=== PATIENT | female | born 1960 | race Caucasian/White ===

== ENCOUNTER 2017-03-21 22:33 | Inpatient (IN) | payer OTHER ==
[~2017-03-21] VITALS: Ht 152.4 cm; Wt 73.0 kg
[2017-03-21] MEDS ORDERED: INSULIN REGULAR, HUMAN 100 UNIT/ML 10 ML VIAL ONE ×2 (22:40→22:42)
[2017-03-21] MEDS ORDERED: IV SET PRIMARY 1 EA INFUS.SET MC ONE ×2 (22:40→23:38)
[2017-03-21] MEDS ORDERED: IV NS 0.9% 1,000 ML ONE ×2 (22:40→23:01)
--- NOTE | 2017-03-21 22:40 | NUR ---
PT BIB RA 60 WITH A C/O AMS, HIGH BLOOD SUGAR >600/HI IN THE FIELD. UNABLE TO START IV IN THE FIELD. PT IS NOT VERBALIZING, NOT OPENING HER EYES. PT IS DNR. PT HAS A WOUND/SCAB ON RT KNEE. PT HAS SM SCAB ON LT KNEE. MULT SCARS ON BUE AND BLE EXTREMITIES. DR. RAVI IS AT THE BEDSIDE. PT IS ON 2L O2 VIA NC.
--- NOTE | 2017-03-21 22:40 | NUR ---
PT IS TACHY ON THE MONITOR AT 175.
[2017-03-21] MEDS ORDERED: IV NS 0.9% 100 ML IV ONE (22:41)
[2017-03-21] MEDS ORDERED: IV SET PRIMARY PUMP SET 1 EA INFUS.SET MC ONE (22:41)
--- NOTE | 2017-03-21 22:44 | NUR ---
CALLED NURSING SUP. FOR ICU BED
--- NOTE | 2017-03-21 22:58 | NUR ---
18G IV STARTED 20G HAND.
[2017-03-21] MEDS: INSULIN REGULAR, HUMAN 100 UNIT in IV NS 0.9% 99 ML IV PRN ×2 (22:59)
--- NOTE | 2017-03-21 22:59 | NUR ---
INSULIN DRIP STARTED AT 10 UNITS/HR IV RIGHT HAND G20. WITNESSED BY JOANNE Rivera. GLUCOSE ON CHEMISTRY 1552 @22:49. REPEAT eMAR BG WAS ENTERED 1000 SINCE THAT WAS THE LIMIT PLACED BY THE COMPUTER.
--- NOTE | 2017-03-21 22:59 | NUR ---
INSULIN DRIP STARTED AT 10 UNITS/HR VIA 20G RT HAND
[2017-03-21] MEDS ORDERED: IV NS 0.9% 1,000 ML BAG IV ONE ×2 (23:00→23:30)
[2017-03-21] MEDS ORDERED: INSULIN REGULAR, HUMAN 100 UNIT/ML 10 ML VIAL IV ONE (23:00)
[2017-03-21 23:04] LABS: BASOPHILS % (AUTO) 0.2 % (0.0-2.0); EOSINOPHILS % (AUTO) 0.1 % (0.0-6.0); HEMATOCRIT 45 % (33-45); HEMOGLOBIN 13.2 g/dL (11.5-14.8); LYMPHOCYTES # (AUTO) 3.8 /CMM (0.8-4.8); LYMPHOCYTES % (AUTO) 18.8 % (20.0-44.0); MEAN CORPUSCULAR HEMOGLOBIN 29 PG (26.0-33.0); MEAN CORPUSCULAR HGB CONC 29 g/dl (31.0-36.0); MEAN CORPUSCULAR VOLUME 98 fL (82-100); MONOCYTES # (AUTO) 0.2 /CMM (0.1-1.30); MONOCYTES % (AUTO) 1.2 % (2.0-12.0); NEUTROPHILS # (AUTO) 16.1 /CMM (1.8-8.9); NEUTROPHILS % (AUTO) 79.7 % (43.0-81.0); PLATELET COUNT (AUTO) 234 /CMM (150-450); RDW COEFFICIENT OF VARIATION 14.1 (11.5-15.0); RED BLOOD CELL COUNT(AUTO) 4.58 MIL/uL (4.0-5.2); WHITE BLOOD COUNT (AUTO) 20.2 K/uL (4.3-11.0)
--- NOTE | 2017-03-21 23:12 | NUR ---
SALINE LOCK PLACED, NS WIDE OPEN ONGOING. INSULIN DRIP STARTED GOING AT 10 UNITS/HR, WILL DO ACCU CHEK Q30 MIN FOR NOW. AVILES CATH INSERTED. LABS DRAWN. SEEN ANS EXAMINED BY BEDSIDE DR RAVI.. KEEP MONITORING...
--- NOTE | 2017-03-21 23:20 | NUR ---
FINGERSTICK BLOOD SUGAR STILL > 600, DR RAVI AWARE. CONTINUE WITH INSULIN DRIP
[2017-03-21 23:21] LABS: CALCIUM, SERUM 7.7 mg/dL (8.5-10.1); CHLORIDE 87 mmol/L (98-107); CREATININE 4.5 mg/dL (0.6-1.3); SODIUM SERUM 127 mmol/L (136-145)
[2017-03-21 23:27] LABS: APPEARANCE,URINE SL CLOUDY (CLEAR); BILIRUBIN,URINE 1+ (NEGATIVE); BLOOD, URINE TRACE Ery/uL (NEGATIVE); COLOR,URINE YELLOW (YELLOW); KETONES,URINE 1+ (NEGATIVE); LEUKOCYTE ESTERASE ,URINE NEGATIVE (NEGATIVE); NITRITE, URINE NEGATIVE (NEGATIVE); PH,URINE 5.5 (5.0-8.0); PROTEIN,URINE 1+ mg/dl (NEGATIVE); UGLUCOSE 3+ mg/dL (NEGATIVE); UROBILINOGEN,URINE 0.2 EU/dL (0.2)
[2017-03-21 23:30] LABS: INR 0.95 (0.87-1.13); PROTHROMBIN TIME 10.1 SECS (9.5-12.7)
[2017-03-21 23:33] LABS: CARBON DIOXIDE < 5 mmol/L (21-32); GLUCOSE 1552 mg/dL (74-106); POTASSIUM 7.5 mmol/L (3.5-5.1); UREA NITROGEN, BLOOD 95 mg/dL (7-18)
[2017-03-21 23:34] LABS: TROPONIN I < 0.017 ng/mL (0.00-0.056)
[2017-03-21 23:36] LABS: ALANINE AMINOTRANSFERASE 21 U/L (12-78); ALBUMIN 2.9 g/dL (3.4-5.0); ALKALINE PHOSPHATASE 196 U/L (46-116); ASPARTATE AMINOTRANSFERASE 20 U/L (15-37); BILIRUBIN,DIRECT 0.1 mg/dL (0.0-0.2); BILIRUBIN,TOTAL 0.4 mg/dL (0.2-1.0); TOTAL PROTEIN, SERUM 8.2 g/dL (6.4-8.2)
[2017-03-21] MEDS ORDERED: CALCIUM CHLORIDE 1,000 MG/10 ML DISP.SYRIN ONE (23:36)
[2017-03-21] MEDS ORDERED: SODIUM BICARBONATE SYR 50 MEQ/50 ML DISP.SYRIN ONE (23:36)
[2017-03-21] MEDS ORDERED: IV NS 0.9% 2,000 ML ONE (23:38)
[2017-03-21 23:39] LABS: BACTERIA,URINE None seen /HPF (None Seen); RBC,URINE 0-2 /HPF (0-2); SQUAMOUS EPITHELIAL CELL,UR Rare /HPF (None Seen); WBC,URINE 0-2 /HPF (0-3); YEAST,URINE Few /HPF (None Seen)
[2017-03-21 23:40] LABS: URINE AMORPHOUS URATE Moderate /HPF (None Seen)
[2017-03-21] MEDS ORDERED: INSU100V11 SQ (23:40)
[2017-03-21] MEDS ORDERED: NA P133E RC (23:40)
[2017-03-21] MEDS ORDERED: INSU3INS6 SUBCUT (23:40)
[2017-03-21] MEDS ORDERED: ASPI81TA2 PO (23:40)
[2017-03-21] MEDS ORDERED: DOCU-25 PO (23:40)
[2017-03-21] MEDS ORDERED: BISA-79 PR (23:40)
[2017-03-21] MEDS ORDERED: CRAN200C PO (23:40)
[2017-03-21] MEDS ORDERED: PROHEAL PO (23:40)
[2017-03-21] MEDS ORDERED: MAGN400O6 PO (23:40)
[2017-03-21] MEDS ORDERED: BUPR1PAT3 TP (23:40)
[2017-03-21] MEDS ORDERED: ACET-868 PO (23:40)
[2017-03-21 23:44] LABS: BAND % (MANUAL) 3 % (0.0-5.0); LYMPHOCYTES % (MANUAL) 28 % (16-48); NEUTROPHILS % (MANUAL) 69 (42-76)
--- NOTE | 2017-03-21 23:54 | NUR ---
PT WILL BE TRANSFER TO ICU BED 258, REPORT GVIEN TO LUKAS/CRISTA.
[2017-03-22] VITALS (100 sets, daily range): BP systolic 24–142; BP diastolic 11–121
[2017-03-22] MEDS ORDERED: CALCIUM CHLORIDE 1,000 MG/10 ML DISP.SYRIN IV ONE
[2017-03-22] MEDS ORDERED: IV NS 0.9% 1,000 ML BAG IV ONE ×2
--- NOTE | 2017-03-22 00:15 | NUR ---
PT LEFT FOR CT VIA GURNEY. PT TO GO TO ICU FROM CT.
[2017-03-22] MEDS ORDERED: ENOXAPARIN SODIUM 40 MG/0.4 ML DISP.SYRIN SQ SCH (00:30)
[2017-03-22] MEDS ORDERED: CEFTRIAXONE 1 G in IV D5W 50 ML IV SCH (00:30)
[2017-03-22] MEDS ORDERED: ONDANSETRON HCL/PF 4 MG/2 ML VIAL IVP PRN (00:30)
[2017-03-22 00:37] LABS: ALANINE AMINOTRANSFERASE 13 U/L (12-78); ALBUMIN 1.8 g/dL (3.4-5.0); ALKALINE PHOSPHATASE 124 U/L (46-116); ASPARTATE AMINOTRANSFERASE 14 U/L (15-37); BILIRUBIN,TOTAL 0.3 mg/dL (0.2-1.0); CALCIUM, SERUM 7.7 mg/dL (8.5-10.1); CHLORIDE 103 mmol/L (98-107); MAGNESIUM 2.4 mg/dL (1.8-2.4); POTASSIUM 4.5 mmol/L (3.5-5.1); SODIUM SERUM 140 mmol/L (136-145); TOTAL PROTEIN, SERUM 5.2 g/dL (6.4-8.2)
[2017-03-22] MEDS ORDERED: IV SET PRIMARY PUMP SET 1 EA INFUS.SET MC ONE ×6 (00:40→23:10)
[2017-03-22] MEDS ORDERED: ENOXAPARIN SODIUM 40 MG/0.4 ML DISP.SYRIN SQ ONE (00:49)
[2017-03-22] MEDS ORDERED: IV D5W 50 ML IV ONE (00:50)
[2017-03-22] MEDS ORDERED: SECONDARY IV SET 1 EA INFUS.SET MC ONE ×3 (00:50→16:26)
[2017-03-22] MEDS ORDERED: CEFTRIAXONE 1 G VIAL ONE (00:50)
[2017-03-22 00:53] LABS: CARBON DIOXIDE < 5 mmol/L (21-32); GLUCOSE 1136 mg/dL (74-106)
[2017-03-22 00:54] LABS: PHOSPHORUS 9.3 mg/dL (2.5-4.9); UREA NITROGEN, BLOOD 89 mg/dL (7-18)
[2017-03-22] MEDS: IV NS 0.9% 1,000 ML IV PRN ×3 (01:16→03:31)
--- NOTE | 2017-03-22 01:25 | NUR ---
CARDIOVASCULAR RN DF RECEIVED PT TO ROOM#258 ABG RESULTED OF PH6.8 CO2 20 HCO3 3 PO2 72(S/W DR MANRIQUE 1 AMP HCO3 ADMIN STAT) HYPOTENSIVE 79/40,80/44 DR MACKENZIE PLAN TO RESUME 0.9 NS BOLUSES UNTIL SHOCK RESOLVED/BP STABLE. AFTER 5TH BOLUS BP OF 91.42 ADMITTED WITH HYPOTHERMIA WARMING MEASURES BEAR HUGGER PROVIDED. ADMIT TEMP OF 91.0 TEMP NOW 92.2 GLUCOSE ON LAB 1136 ORDER TO GIVE INSULIN GTT @15 UNITS/HR UNTIL GLUCOSE IS 600 OR LESS.
[2017-03-22 01:26] LABS: ABG BASE EXCESS -30.5 mmol/L; ABG PCO2 20.4 mmHg (35.0-45.0); ABG PH 6.815 (7.350-7.450); ABG PO2 75.8 mmHg (75.0-100.0); AaDO2 99.8 mmHg; SITE, ABG Left Radial
[2017-03-22] MEDS ORDERED: SODIUM BICARBONATE SYR 50 MEQ/50 ML DISP.SYRIN IV ONE ×2 (02:00)
--- NOTE | 2017-03-22 03:00 | NUR ---
LEASING SPECIALIST DF 2 LAB TECHS AT BEDSIDE ATTEMPTING PERIPHERAL DRAW.SAMPLE OBTAINED AWAITING RESULTS. LACTIC ACID 2.5 CRITICAL VALUE DNP BURTON AWARE PT ON 7TH LITER BOLUS. PREVIOUS NOTED PT HYPOTENSIVE AT 76/41,86/41 DR MANRIQUE AWARE OF HYPOTENSIVE PT RECEIVING 0.9NS BOLUSES. ABG DRAWN AWAITING RESULTS. I WILL CONTACT MD REGARDING HYPOTENSION, ABG/LABS ONCE RESULTED. PT A/O PERSON PT MORE AWAKE FOLLOWING SOME SIMPLE COMMANDS. PT AGITATED,RESTLESS, FLAILING BUE ATTEMPTING TO CLIMB OVER SIDE RAIL OF BED. PT NOT FOLLOWING SAFETY INSTRUCTIONS RISK FOR SELF HARM. MARINA SOFT WRIST RESTRAINTS ORDER RECEIVED, MAY APPLY RESTRAINTS IF PT CONTINUES TO BE UNCOOPERATIVE.
[2017-03-22] MEDS ORDERED: IV NS 0.9% 1,000 ML ONE (03:21)
[2017-03-22] MEDS ORDERED: IV NS 0.9% 1,000 ML IV PRN ×2 (03:31→23:30)
[2017-03-22 03:39] LABS: CREATININE 2.5 mg/dL (0.6-1.3); MAGNESIUM 1.4 mg/dL (1.8-2.4); PHOSPHORUS 3.5 mg/dL (2.5-4.9)
[2017-03-22 03:59] LABS: ABG BASE EXCESS -24.8 mmol/L; ABG PCO2 20.3 mmHg (35.0-45.0); ABG PH 7.005 (7.350-7.450); ABG PO2 93.3 mmHg (75.0-100.0); AaDO2 118.3 mmHg; SITE, ABG Right Brachial; VENT MODE, BG 4L NC
[2017-03-22 04:05] LABS: POTASSIUM 2.2 mmol/L (3.5-5.1)
[2017-03-22 04:06] LABS: CALCIUM, SERUM 5.4 mg/dL (8.5-10.1)
--- NOTE | 2017-03-22 04:13 | NUR ---
VICE PRESIDENT INVESTOR RELATIONS DF GLUCOSE OF 596 PER ORDERS WILL START ALOGORITHIM ORDER OF DNP STACT BS *1.5/100 NEW RATE OF 4.5 UNITS.CRITICAL RESULTS POTASSIUM OF 2.2 CALCIUM OF 5.3 FORWARDED TO DNP AWAITING ORDERS?CALLBACK. ABG RESULTED PH 7.05 CO2 20 HCO3 5 PO2 93. Addendum: 03/22/17 at 0701 by SONAM GARDUNO RN CORRECTION TO INSULIN RATE 8.9 UNITS HOUR INSULIN/PT VERIFIED BY 2 RN.S POTASSIUM ORDERS RECEIVED FOR 10MEQ X4 EACH OVER 1 HOUR UNTIL CENTRAL LINE IS INSERTED THEN TRANSFUSE AT 20MEQ KCL PER HOUR PER DNP BURTON. CENTRAL LINE INSERTED AROUND 0530 AM. PT HYPOTENSIVE AT 63/45 LEVOPHED GTT IN 0.9 NS STARTED AT 5MCG BP INCREASE 102/51. CALCIUM GLUCONATE ORDERS RECEIVED AND ADMIN. CVP MONITORING VALUE OF 11. ATIVAN 2MG IVP ADMIN PRIOR TO CENTRAL LINE PRN PT AGITATED UNCOOPERATIVE DURING PROCEDURE. DNP BURTON AT BEDSIDE DURING ABOVE EVENTS.
[2017-03-22] MEDS: POTASSIUM CL. PREMIX PERIPHER. 50 ML IV SCH ×4 (04:20→07:00)
[2017-03-22] MEDS ORDERED: POTASSIUM CL. PREMIX PERIPHER. 100 ML ONE ×2 (04:22→06:18)
[2017-03-22] MEDS: Potassium Chloride 40 MEQ in IV NS 0.9% 1,000 ML IV SCH ×2 (04:25→09:20)
[2017-03-22] MEDS: Calcium Gluconate 1GM/10ML 9.3 MEQ in IV D5W 250 ML IV ONE ×2 (04:30→06:11)
[2017-03-22 04:48] LABS: BASOPHILS % (AUTO) 0.1 % (0.0-2.0); EOSINOPHILS % (AUTO) 0.1 % (0.0-6.0); HEMATOCRIT 25 % (33-45); HEMOGLOBIN 8.3 g/dL (11.5-14.8); LYMPHOCYTES # (AUTO) 1.8 /CMM (0.8-4.8); LYMPHOCYTES % (AUTO) 19.7 % (20.0-44.0); MEAN CORPUSCULAR HEMOGLOBIN 29 PG (26.0-33.0); MEAN CORPUSCULAR HGB CONC 33 g/dl (31.0-36.0); MEAN CORPUSCULAR VOLUME 86 fL (82-100); MONOCYTES # (AUTO) 0.4 /CMM (0.1-1.30); MONOCYTES % (AUTO) 4.5 % (2.0-12.0); NEUTROPHILS # (AUTO) 6.9 /CMM (1.8-8.9); NEUTROPHILS % (AUTO) 75.6 % (43.0-81.0); PLATELET COUNT (AUTO) 142 /CMM (150-450); RDW COEFFICIENT OF VARIATION 13.3 (11.5-15.0); RED BLOOD CELL COUNT(AUTO) 2.89 MIL/uL (4.0-5.2); WHITE BLOOD COUNT (AUTO) 9.1 K/uL (4.3-11.0)
[2017-03-22] MEDS ORDERED: IV PREMIX NS + 40 MEQ KCL 40 MEQ/L BAG IV ONE (04:58)
[2017-03-22] MEDS ORDERED: LORAZEPAM INJ 2 MG/ML VIAL IV ONE (05:10)
[2017-03-22] MEDS ORDERED: LORAZEPAM INJ 2 MG/ML VIAL ONE (05:11)
[2017-03-22] MEDS ORDERED: IV D5W 250 ML IV ONE (05:11)
[2017-03-22] MEDS ORDERED: Calcium Gluconate 0.465 MEQ/ML VIAL IV ONE (05:12)
[2017-03-22 05:13] LABS: CREATININE 2.7 mg/dL (0.6-1.3); MAGNESIUM 1.3 mg/dL (1.8-2.4); PHOSPHORUS 2.9 mg/dL (2.5-4.9)
[2017-03-22 05:26] LABS: CALCIUM, SERUM 5.7 mg/dL (8.5-10.1); POTASSIUM 2.2 mmol/L (3.5-5.1)
[2017-03-22] MEDS ORDERED: IV NS 0.9% 500 ML IV ONE ×2 (05:29→05:44)
[2017-03-22] MEDS ORDERED: IV NS 0.9% 100 ML IV ONE (05:45)
[2017-03-22] MEDS ORDERED: NOREPINEPHRINE 4 MG/4 ML AMPUL IV ONE (05:46)
[2017-03-22] MEDS ORDERED: INSULIN REGULAR, HUMAN 100 UNIT/ML 10 ML VIAL ONE (05:51)
[2017-03-22 05:56] LABS: BAND % (MANUAL) 25 % (0.0-5.0); LYMPHOCYTES % (MANUAL) 24 % (16-48); MONOCYTES % (MANUAL) 2 % (0-11.0); MYELOCYTES % 2 % (0-0); NEUTROPHILS % (MANUAL) 46 (42-76); PROMYELOCYTES % 1 % (0-0)
[2017-03-22] MEDS ORDERED: NOREPINEPHRINE 16 MG in IV D5W 500 ML IV PRN (06:00)
[2017-03-22] MEDS: INSULIN REGULAR, HUMAN 100 UNIT in IV NS 0.9% 99 ML IV PRN ×4 (06:24→09:12)
[2017-03-22] MEDS ORDERED: NOREPINEPHRINE 8 MG in IV NS 0.9% 500 ML IV PRN (06:30)
--- NOTE | 2017-03-22 06:30 | NUR ---
LINE INSTALLER DF PT PLACED ON SIMPLE MASK @ 6LPM PT WAS WITH N/C @2LPM O2 SAT OF 90-92%.O2 SAT INCREASE TO 98% ON SIMPLE MASK.
[2017-03-22 06:51] LABS: CREATININE 3.1 mg/dL (0.6-1.3); MAGNESIUM 1.7 mg/dL (1.8-2.4); PHOSPHORUS 3.4 mg/dL (2.5-4.9); POTASSIUM 3.5 mmol/L (3.5-5.1)
--- NOTE | 2017-03-22 07:03 | NUR ---
SUPERVISOR CHEMICAL DF @2722 PT ACCU CHECK OF 445*1.5/100=6.7 UNITS/HOUR. MG OF 1.3 ORDER RECEIVED FOR 4GMS MG IVPB
--- NOTE | 2017-03-22 08:00 | NUR ---
Patient nonverbal, eyes close. hypotensive, hypothermic 96F, tachycardic. On levophed drip, insulin drip for DKA, IV fluids NS with 40KCL @ 250ml/hr, and potassium replacement as ordered. Right knee big scab noted, pending wound care. skin intact on the back with old scar. repositioned on the side.
[2017-03-22] MEDS: PANTOPRAZOLE 40 MG VIAL IV SCH (08:07)
[2017-03-22] MEDS: Magnesium 1GM/D5W 100ML PREMIX 100 ML IV SCH ×4 (08:07→11:23)
[2017-03-22] MEDS: BLOOD SUGAR DIAGNOSTIC 1 EACH STRIP IN SCH ×17 (08:19→23:57)
[2017-03-22 08:47] LABS: CALCIUM, SERUM 7.6 mg/dL (8.5-10.1); CREATININE 2.9 mg/dL (0.6-1.3); MAGNESIUM 1.5 mg/dL (1.8-2.4); PHOSPHORUS 2.1 mg/dL (2.5-4.9); POTASSIUM 4.3 mmol/L (3.5-5.1)
[2017-03-22] MEDS: NOREPINEPHRINE 16 MG in IV D5W 500 ML IV PRN (09:11)
[2017-03-22] MEDS ORDERED: Potassium Chloride 40 MEQ in IV NS 0.9% 1,000 ML IV PRN (10:29)
--- NOTE | 2017-03-22 11:00 | NUR ---
Patient current temperature 99.5. Cira hugger removed. Patient restless, moving her head from side to side and unpurposeful movement of the arms. She does not open her eyes even with pain.
--- NOTE | 2017-03-22 12:40 | NUR ---
Patient saturation drop to 70's. Placed on non rebreather face mask from nasal cannula 2l. Initial response- saturation >80%.
[2017-03-22 12:43] LABS: CALCIUM, SERUM 7.8 mg/dL (8.5-10.1); CREATININE 2.5 mg/dL (0.6-1.3); PHOSPHORUS 1.3 mg/dL (2.5-4.9); POTASSIUM 4.9 mmol/L (3.5-5.1)
--- NOTE | 2017-03-22 13:06 | NUR ---
Patient continues to desaturate @ 80's. Patient became hypotensive on 60's. Levophed increased to 25mcg.
[2017-03-22] MEDS ORDERED: Potassium Chloride 20 MEQ in IV NS 0.9% 1,000 ML IV PRN (13:30)
[2017-03-22 13:38] LABS: ABG BASE EXCESS -14.2 mmol/L; ABG OXYGEN SATURATION 86.1 % (92.0-98.5); ABG PCO2 56.5 mmHg (35.0-45.0); ABG PH 7.067 (7.350-7.450); AaDO2 594.5 mmHg; COHb 0.5 % (0.5-1.5); O2Hb 84.8 % (94.0-97.0); SITE, ABG Left Radial; VENT MODE, BG NONREBREATHER MASK
--- NOTE | 2017-03-22 13:44 | NUR ---
MULTIPLE D/W DR WALTON INCLUDING ABG ON 100% NRB MASK WITH PH 7.07, PCO2 57 AND PO2 62, LABS FROM 12 NONN AND CLINICAL PICTURE INCLUDING UNRESPONSIVENESS, AND INCREASING LEVOPHED NEEDS. BIPAP TO BE STARTED. PT IS A DNI/DNR STATUS
[2017-03-22] MEDS ORDERED: FEE PK DOSING 1 MIN EA MC ONE (14:52)
--- NOTE | 2017-03-22 15:40 | NUR ---
DNP BURTON GIVEN UPDATE AND 12 NOON LABS R/V'D. ORDERED POTASSIUM PHOSPHATE. IV FLUIDS ORDERED BY DR WALTON R/V'D WITH DNP BURTON WELL
[2017-03-22] MEDS: VANCOMYCIN 0.75 GM in IV D5W 250 ML IV SCH (15:44)
[2017-03-22] MEDS: Potassium Phosphate meq 11 MEQ in IV D5W 100 ML IV SCH ×2 (17:06→19:00)
[2017-03-22] MEDS: PIPERACILLIN /TAZOBACTAM 2.25 G in IV D5W 50 ML IV SCH ×2 (18:11→23:41)
[2017-03-22 18:39] LABS: CALCIUM, SERUM 7.6 mg/dL (8.5-10.1); CREATININE 2.2 mg/dL (0.6-1.3); POTASSIUM 5.4 mmol/L (3.5-5.1)
--- NOTE | 2017-03-22 19:30 | NUR ---
RN:ICU: SPOKE WITH DR. MANRIQUE BMP RESULTS FROM 1800. NEW ORDERS TO D/C KPHOS, CHANGE IVF, INCREASE INSULIN GTT FORMULA TO BSX2/100. NEXT BMP AT 2130. CONTINUE ACCUCHECK Q1H. PT BECOMING RESTLESS AND ALMOST REMOVED IJ TLC. BILATERAL SOFT WRIST RESTRAINTS PLACED FOR PATIENT SAFETY. WILL TITRATE LEVOPHED BP PERMITS. WILL CONTINUE TO MONITOR CLOSELY.
[2017-03-22] MEDS ORDERED: IV D5/0.45 NACL 1,000 ML IV ONE (19:36)
[2017-03-22] MEDS: IV D5/0.45 NACL 1,000 ML IV PRN (19:41)
--- NOTE | 2017-03-22 20:14 | NUR ---
PATIENT REC'D ON BIPAP WITH SETTINGS SET PER MD NAZANIN BRICENO. VENT ALARMS CHECKED + AUDIBLE. BIPAP PLUGGED INTO RED OUTLET. B/S LOU DEL CID. MIHIR BAG AT HOB. CONT CURRENT PLAN OF RESP CARE. Addendum: 03/22/17 at 2015 by JANIYA REYNOLDS RT Amended: Links added.
[2017-03-22] MEDS: ENOXAPARIN SODIUM 30 MG/0.3 ML DISP.SYRIN SQ SCH (20:54)
[2017-03-22 21:43] LABS: CALCIUM, SERUM 7.6 mg/dL (8.5-10.1); CREATININE 2.1 mg/dL (0.6-1.3)
[2017-03-22] MEDS ORDERED: Potassium Phosphate meq 11 MEQ in IV D5W 100 ML IV SCH (22:00)
[2017-03-22 22:56] LABS: ABG BASE EXCESS -9.7 mmol/L; ABG OXYGEN SATURATION 68.2 % (92.0-98.5); ABG PCO2 34.3 mmHg (35.0-45.0); ABG PH 7.286 (7.350-7.450); ABG PO2 34.3 mmHg (75.0-100.0); AaDO2 355.8 mmHg; COHb 0.7 % (0.5-1.5); MetHb 1.3 % (0.0-1.5); O2Hb 66.8 % (94.0-97.0); VENT MODE, BG BIPAP 20/5 RR18 60%
[2017-03-23] VITALS (101 sets, daily range): BP systolic 57–140; BP diastolic 20–101
--- NOTE | 2017-03-23 00:28 | NUR ---
RN:ICU: SPOKE WITH DR MANRIQUE REGARDING PT CONDITION AND BMP RESULTS. NEW ORDERS FOR 1L NS BOLUS AND NEXT BMP AT 0200. VBG RESULT REPORTED TO PRO SHOP ATTENDANT WELL. CVP 14 S/P BOLUS. PT REMAINS RESTLESS. WILL CONTINUE TO MONITOR CLOSELY.
[2017-03-23] MEDS: BLOOD SUGAR DIAGNOSTIC 1 EACH STRIP IN SCH ×16 (01:03→20:59)
[2017-03-23] MEDS ORDERED: IV 10% DEXTROSE 1,000 ML IV ONE (01:17)
[2017-03-23] MEDS ORDERED: IV 10% DEXTROSE 1,000 ML IV PRN (01:30)
[2017-03-23] MEDS ORDERED: Sodium Chloride 154 MEQ in IV 10% DEXTROSE 1,000 ML IV PRN (01:30)
[2017-03-23 01:32] LABS: CALCIUM, SERUM 7.6 mg/dL (8.5-10.1); CREATININE 1.9 mg/dL (0.6-1.3); POTASSIUM 4.3 mmol/L (3.5-5.1)
--- NOTE | 2017-03-23 02:00 | NUR ---
RN:ICU: D/W DR MANRIQUE REGARDING PT RR RATE 30-40'S. NEW BMP RESULTS AND VS/CVP. NEW ORDERS TO DECREASE MAIN IVF TO 125ML/HR AND START D10 AT 75ML/HR. NEXT BMP SCHEDULE FOR 0400. COMPLETE BED BATH PERFORMED.
[2017-03-23] MEDS: IV D5/0.45 NACL 1,000 ML IV PRN (02:29)
--- NOTE | 2017-03-23 03:47 | NUR ---
RN:ICU: PT BP REMAINS VERY LABILE AND IS DIFFICULT TO TITRATE LEVOPHED GTT. PT BP GOES FROM 130'S-70'S WITH MINIMAL TITRATION. PT CONTINUES TO BE RESTLESS, THRASHING IN THE BED. SAFETY PRECAUTIONS IN PLACE.
[2017-03-23] MEDS: INSULIN REGULAR, HUMAN 100 UNIT in IV NS 0.9% 99 ML IV PRN ×2 (03:57)
[2017-03-23 04:21] LABS: CALCIUM, SERUM 7.7 mg/dL (8.5-10.1); CREATININE 1.7 mg/dL (0.6-1.3); POTASSIUM 3.9 mmol/L (3.5-5.1)
[2017-03-23 04:34] LABS: THYROID STIMULATING HORMONE 0.663 uIU/mL (0.358-3.74)
[2017-03-23] MEDS ORDERED: Potassium Chloride 20 MEQ in IV D5/0.45 NACL 1,000 ML IV PRN (05:00)
--- NOTE | 2017-03-23 05:05 | NUR ---
RN:ICU: SPOKE WITH DR MANRIQUE REGARDING 0400 BMP RESULTS. ORDERS TO CONTINUE CURRENT INSULIN GTT ALGORITHM, CHANGE MAIN IV TO D51/2NS WITH 20MEQ KCL AT 125ML/HR AND D10 AT 75ML/HR. NEXT BMP 0600. ORDERS CARRIED OUT.
[2017-03-23] MEDS ORDERED: IV PREMIX D5 1/2NS + KCL 1,000 ML IV ONE (05:06)
[2017-03-23] MEDS: PIPERACILLIN /TAZOBACTAM 2.25 G in IV D5W 50 ML IV SCH ×3 (05:24→16:57)
[2017-03-23] MEDS ORDERED: IV NS 0.9% 500 ML IV ONE (05:46)
[2017-03-23 06:13] LABS: CALCIUM, SERUM 7.8 mg/dL (8.5-10.1); CREATININE 1.6 mg/dL (0.6-1.3); POTASSIUM 3.8 mmol/L (3.5-5.1)
[2017-03-23 06:40] LABS: EOSINOPHILS % (AUTO) 0.1 % (0.0-6.0); HEMATOCRIT 26 % (33-45); HEMOGLOBIN 9.1 g/dL (11.5-14.8); LYMPHOCYTES # (AUTO) 0.5 /CMM (0.8-4.8); LYMPHOCYTES % (AUTO) 9.1 % (20.0-44.0); MEAN CORPUSCULAR HEMOGLOBIN 30 PG (26.0-33.0); MEAN CORPUSCULAR HGB CONC 35 g/dl (31.0-36.0); MEAN CORPUSCULAR VOLUME 85 fL (82-100); MONOCYTES # (AUTO) 0.5 /CMM (0.1-1.30); NEUTROPHILS # (AUTO) 4.2 /CMM (1.8-8.9); NEUTROPHILS % (AUTO) 81.8 % (43.0-81.0); PLATELET COUNT (AUTO) 98 /CMM (150-450); RDW COEFFICIENT OF VARIATION 12.9 (11.5-15.0); RED BLOOD CELL COUNT(AUTO) 3.07 MIL/uL (4.0-5.2); WHITE BLOOD COUNT (AUTO) 5.1 K/uL (4.3-11.0)
[2017-03-23 06:50] LABS: MAGNESIUM 2.2 mg/dL (1.8-2.4)
--- NOTE | 2017-03-23 07:22 | NUR ---
RN:ICU: PT BMP RESULTS ENDORSED TO ONCOMING SHIFT.
[2017-03-23] MEDS ORDERED: INSULIN REGULAR, HUMAN 100 UNIT in IV NS 0.9% 99 ML IV PRN ×4 (08:00→15:00)
[2017-03-23 08:12] LABS: BAND % (MANUAL) 35 % (0.0-5.0); LYMPHOCYTES % (MANUAL) 10 % (16-48); METAMYELOCYTES % 5 % (0-0); MONOCYTES % (MANUAL) 10 % (0-11.0); MYELOCYTES % 7 % (0-0); NEUTROPHILS % (MANUAL) 33 (42-76)
[2017-03-23] MEDS: PANTOPRAZOLE 40 MG VIAL IV SCH (08:23)
[2017-03-23] MEDS ORDERED: IV SET PRIMARY PUMP SET 1 EA INFUS.SET MC ONE ×3 (08:26→17:56)
[2017-03-23] MEDS: Potassium Phosphate meq 11 MEQ in IV D5W 100 ML IV SCH ×2 (09:00→11:10)
[2017-03-23 09:14] LABS: ABG BASE EXCESS -9.3 mmol/L; ABG OXYGEN SATURATION 95.1 % (92.0-98.5); ABG PCO2 23.3 mmHg (35.0-45.0); ABG PH 7.397 (7.350-7.450); ABG PO2 83.5 mmHg (75.0-100.0); AaDO2 318.7 mmHg; COHb 0.3 % (0.5-1.5); MetHb 0.9 % (0.0-1.5); SITE, ABG Right Radial; VENT MODE, BG ST 20/5
[2017-03-23] MEDS: NOREPINEPHRINE 16 MG in IV D5W 500 ML IV PRN ×2 (09:46→15:54)
[2017-03-23] MEDS ORDERED: POTASSIUM CL. PREMIX PERIPHER. 50 ML IV SCH (11:00)
[2017-03-23] MEDS ORDERED: SECONDARY IV SET 1 EA INFUS.SET MC ONE ×2 (11:21→21:03)
[2017-03-23] MEDS: Sodium Bicarbonate 50 MEQ in IV D5/0.45 NACL 1,000 ML IV PRN ×2 (11:57→20:56)
[2017-03-23 12:10] LABS: CALCIUM, SERUM 7.9 mg/dL (8.5-10.1); CREATININE 1.4 mg/dL (0.6-1.3); POTASSIUM 4.4 mmol/L (3.5-5.1)
[2017-03-23] MEDS ORDERED: IV NS 0.9% 250 ML IV ONE (14:03)
--- NOTE | 2017-03-23 14:12 | NUR ---
PT RECEIVED ON BIPAP W/ SETTINGS PER MD. BIPAP ALARMS CHECKED AND AUDIBLE, BIPAP PLUGGED INTO RED OUTLET. AMBUBAG AT BEDSIDE. ABG DONE AND REPORTED TO MD. PLAN IS CONTINUE W/ CURRENT CARE UNDER MD ORDERS AND MONITOR FOR CHANGES. Addendum: 03/23/17 at 1414 by ELVIA MCGUIRE RT Amended: Links added.
[2017-03-23] MEDS ORDERED: DEXTROSE 50%-WATER 50 ML DISP.SYRIN IV PRN (15:00)
[2017-03-23] MEDS: VANCOMYCIN 0.75 GM in IV D5W 250 ML IV SCH (15:03)
[2017-03-23] MEDS: INSULIN REGULAR, HUMAN 100 UNIT/ML 3 ML VIAL SQ PRN ×2 (16:52→20:58)
[2017-03-23 17:12] LABS: CALCIUM, SERUM 7.5 mg/dL (8.5-10.1); CREATININE 1.2 mg/dL (0.6-1.3); PHOSPHORUS 1.8 mg/dL (2.5-4.9); POTASSIUM 3.3 mmol/L (3.5-5.1)
[2017-03-23] MEDS ORDERED: POTASSIUM PHOSPHATE MM 7.5 MMOL in IV D5W 100 ML IV SCH ×2 (18:00→23:00)
--- NOTE | 2017-03-23 18:47 | NUR ---
PSYCHOLOGIST SOCIAL PATIENT STILL ON LEVOPHED, TOO SENSITIVE TO TURN OFF LEVOPHED. LEVOPHED RUNNING AT LOW DOSE RESTLESS AT TIMES PATIENT MAINTAINED ON RESTRAINT DUE TO RESTLESS EPISODE AFEBRILE PHOSPHORUS IS LOW, K PHOS IS BEING REPLACED NO OTHER UNTOWARD SYMPTOM SEEN ENDORSED TO NOD
--- NOTE | 2017-03-23 20:00 | NUR ---
RECEIVED PATIENT WITH BIPAP ON SATURATING 100%.NO ACUTE RESPIRATORY DISTRESS NOTED.JUST RESTLESS TRYING TO REMOVE BIPAP.BILATERAL SOFT WRIST RESTRAINTS ON. ST 108.CVP 8 LEVOPHED INFUSING AT 1 MCG FOR BP SUPPORT.DIFFICULT TO TITRATE OFF BP VERY SENSITIVE.PATIENT RECEIVING POTASSIUM PHOSPHATE AND KCL REPLACEMENT. WITH IVF D51/2NS+1 AMP NAHCO3 INFUSING.ALL IV'S INFUSING VIA ADALID PICC LINE.SITE INTACT. TURNED AND REPOSITIONED.
[2017-03-23 20:12] LABS: BILIRUBIN,DIRECT 0.1 mg/dL (0.0-0.2); BILIRUBIN,TOTAL 0.4 mg/dL (0.2-1.0)
--- NOTE | 2017-03-23 20:32 | NUR ---
PATIENT LACTIC ACID 3.0 CALLED TO NO NEW ORDERS RECEIVED.
[2017-03-23] MEDS ORDERED: SODIUM BICARBONATE SYR 50 MEQ/50 ML DISP.SYRIN ONE (20:45)
[2017-03-23] MEDS ORDERED: IV D5/0.45 NACL 1,000 ML IV ONE (20:46)
[2017-03-23] MEDS: POTASSIUM CL. PREMIX PERIPHER. 50 ML IV SCH ×2 (20:58→22:02)
[2017-03-23] MEDS: ENOXAPARIN SODIUM 30 MG/0.3 ML DISP.SYRIN SQ SCH (20:59)
[2017-03-23 21:26] LABS: CALCIUM, SERUM 7.3 mg/dL (8.5-10.1); CREATININE 1.1 mg/dL (0.6-1.3); POTASSIUM 3.1 mmol/L (3.5-5.1)
[2017-03-24] VITALS (83 sets, daily range): BP systolic 78–170; BP diastolic 31–133
--- NOTE | 2017-03-24 | NUR ---
PATIENT RESTING.BP REMAINS LABILE LEVOPHED DRIP INFUSING.INCONTINENT OF STOOL. PERINEAL AND BED BATH RENDERED.COMPLETE LINENS CHANGED.TURNED AND REPOSITIONED.
[2017-03-24] MEDS: BLOOD SUGAR DIAGNOSTIC 1 EACH STRIP IN SCH ×6 (01:05→21:00)
[2017-03-24] MEDS: INSULIN REGULAR, HUMAN 100 UNIT/ML 3 ML VIAL SQ PRN ×6 (01:07→21:19)
[2017-03-24 01:17] LABS: CALCIUM, SERUM 7.5 mg/dL (8.5-10.1); POTASSIUM 3.6 mmol/L (3.5-5.1)
[2017-03-24] MEDS: POTASSIUM CL. PREMIX PERIPHER. 50 ML IV SCH ×4 (02:01→10:53)
--- NOTE | 2017-03-24 03:00 | NUR ---
FEBRILE 101.5.TYLENOL SUPP.GIVEN PRN.COOLING MEASURES DONE.CONTINUE MONITORING.
[2017-03-24] MEDS: ACETAMINOPHEN 650 MG/SUPP.RECT RC PRN ×2 (03:01→10:39)
[2017-03-24] MEDS ORDERED: SODIUM BICARBONATE SYR 50 MEQ/50 ML DISP.SYRIN ONE (03:39)
[2017-03-24] MEDS ORDERED: IV D5/0.45 NACL 1,000 ML IV ONE (03:40)
[2017-03-24 04:47] LABS: ALBUMIN 1.5 g/dL (3.4-5.0); BILIRUBIN,TOTAL 0.6 mg/dL (0.2-1.0); CALCIUM, SERUM 7.3 mg/dL (8.5-10.1); MAGNESIUM 1.8 mg/dL (1.8-2.4); PHOSPHORUS 1.9 mg/dL (2.5-4.9); POTASSIUM 3.4 mmol/L (3.5-5.1); TOTAL PROTEIN, SERUM 5.1 g/dL (6.4-8.2)
--- NOTE | 2017-03-24 05:00 | NUR ---
BLOOD SUGAR MONITORED Q 4 HRS COVERAGE GIVEN PER MODERATE SLIDING SCALE.
[2017-03-24] MEDS: Sodium Bicarbonate 50 MEQ in IV D5/0.45 NACL 1,000 ML IV PRN (05:03)
[2017-03-24] MEDS ORDERED: IV NS 0.9% 500 ML IV ONE ×2 (05:05→13:23)
[2017-03-24] MEDS: PIPERACILLIN /TAZOBACTAM 2.25 G in IV D5W 50 ML IV SCH ×6 (05:45→23:27)
[2017-03-24] MEDS ORDERED: Potassium Phosphate meq 11 MEQ in IV D5W 100 ML IV SCH (06:30)
--- NOTE | 2017-03-24 07:00 | NUR ---
NEW ORDER OF K PHOS NOT GIVEN.PHARMACY TO MIX.WILL ENDORSE TO AM SHIFT FOR CONTINUITY OF CARE.
--- NOTE | 2017-03-24 07:00 | NUR ---
ICU INITIAL NOTES RECEIVED PT IN BED, CONFUSED, PT IS ON BIPAP 20/5 RATE 15 FIO2 40%, SATING 100%, NO S/S OF RESP.DISTRESS OR SOB NOTED AT THIS TIME, PT IS ON BEDSIDE MONITOR SHOWING ST@106BPM, NO S/S OF CHEST PAIN OR DISCOMFORT AT THIS TIME, PT HAS F/C DRAINING YELLOW URINE TO GRAVITY, PT HAS MULTIPLE SKIN ISSUES, PT HAS BILATERAL WRIST RESTAINTS, RELEASED AND SKIN CHECK COMPLETED, PT IS CURRENTLY NPO AT THIS TIME, PT HAS RIJ TLC, RUNNING D5 1/2 NS + SODIUM BICARB @ 125ML/HR, LEVO @ 2MCG/MIN, R HAND #18G,SL, R WRIST 18G, SL, C/D/I/PATENT, FLUSHING WELL, NO S/S OF INFECTION/ INFILTRATION NOTED AT THIS TIME, PT HAS CVP MONITOR SHOWING 7 MMHG, ALL SAFETY MEASURES IN PLACE AT ALL TIMES, CALL LIGHT WITHIN EASY REACH, WILL MONITOR PT CLOSELY FOR CHANGES
[2017-03-24 07:55] LABS: ABG BASE EXCESS -3.9 mmol/L; ABG OXYGEN SATURATION 95.5 % (92.0-98.5); ABG PCO2 25.8 mmHg (35.0-45.0); ABG PH 7.479 (7.350-7.450); ABG PO2 88.5 mmHg (75.0-100.0); COHb 0.3 % (0.5-1.5); MetHb 0.9 % (0.0-1.5); O2Hb 94.4 % (94.0-97.0); SITE, ABG Left Radial; VENT MODE, BG BIPAP20/5 PS 15
--- NOTE | 2017-03-24 07:56 | NUR ---
WOUND CARE CONSULT: PT PRESENTS WITH STAGE II ULCER TO SACROCOCCYX AREA AND DRY ESCHAR TO RT KNEE WITH SURROUNDING SCARRING. MULTIPLE AREAS OF SCARRING NOTED INCLUDING LEFT KNEE, ARMS AND ABDOMEN. RT TOES PREVIOUSLY AMPUTATED WITH EXCEPTION OF 5TH TOE. ALL SKIN PROTECTION AND WOUND RECOMMENDATIONS DISCUSSED WITH NURSING STAFF. CHEMA SCORE CURRENTLY 10. FIRST STEP MATTRESS ORDERED. WILL SEE PRN. CAVAOZS IN AGREEMENT WITH PLAN OF CARE. Addendum: 03/24/17 at 0759 by JUN GREEN WNDNU Amended: Links added.
[2017-03-24] MEDS ORDERED: HYDROGEL DRESSING 90 GM TUBE TP PRN (08:00)
[2017-03-24] MEDS: Z GUARD REMEDY 2 OZ OINT TP PRN (08:33)
[2017-03-24] MEDS: PANTOPRAZOLE 40 MG VIAL IV SCH (08:33)
[2017-03-24] MEDS ORDERED: Sodium Phosphate 7.5 MMOL in IV D5W 100 ML IV ONE (09:30)
--- NOTE | 2017-03-24 09:30 | NUR ---
ICU NOTES DR. WALTON MADE ROUNDSMD AWARE OF LABS AND RESULTS, ALL NEW ORDERS ACK.
[2017-03-24] MEDS ORDERED: IV SET PRIMARY PUMP SET 1 EA INFUS.SET MC ONE ×2 (09:59→12:20)
[2017-03-24] MEDS: HYDROGEL DRESSING 90 GM TUBE TP SCH (10:38)
[2017-03-24] MEDS: ALBUMIN 25% 25 GM in PREMIX 1 EA IV SCH ×3 (12:25→23:27)
[2017-03-24] MEDS ORDERED: IV NS 0.9% 0 ML IV ONE (13:22)
--- NOTE | 2017-03-24 13:55 | NUR ---
ICU NOTES 500ML NS FOR CVP MONITORING
[2017-03-24] MEDS ORDERED: NOREPINEPHRINE 16 MG in IV D5W 500 ML IV PRN (14:30)
[2017-03-24] MEDS: VANCOMYCIN 0.75 GM in IV D5W 250 ML IV SCH (15:25)
[2017-03-24] MEDS: ENOXAPARIN SODIUM 30 MG/0.3 ML DISP.SYRIN SQ SCH (21:22)
[2017-03-25] VITALS (32 sets, daily range): BP systolic 89–155; BP diastolic 47–91
[2017-03-25] MEDS: INSULIN REGULAR, HUMAN 100 UNIT/ML 3 ML VIAL SQ PRN ×5 (01:36→23:57)
[2017-03-25] MEDS: BLOOD SUGAR DIAGNOSTIC 1 EACH STRIP IN SCH ×5 (01:37→23:57)
[2017-03-25] MEDS: VANCOMYCIN 0.75 GM in IV D5W 250 ML IV SCH ×2 (04:22→16:06)
[2017-03-25 04:48] LABS: BASOPHILS % (AUTO) 0.1 % (0.0-2.0); EOSINOPHILS # (AUTO) 0.1 /CMM (0.0-0.7); EOSINOPHILS % (AUTO) 2.6 % (0.0-6.0); HEMATOCRIT 23 % (33-45); HEMOGLOBIN 7.9 g/dL (11.5-14.8); LYMPHOCYTES # (AUTO) 0.7 /CMM (0.8-4.8); LYMPHOCYTES % (AUTO) 15.9 % (20.0-44.0); MEAN CORPUSCULAR HEMOGLOBIN 29 PG (26.0-33.0); MEAN CORPUSCULAR HGB CONC 34 g/dl (31.0-36.0); MEAN CORPUSCULAR VOLUME 85 fL (82-100); MONOCYTES # (AUTO) 0.2 /CMM (0.1-1.30); MONOCYTES % (AUTO) 4.4 % (2.0-12.0); NEUTROPHILS # (AUTO) 3.4 /CMM (1.8-8.9); RDW COEFFICIENT OF VARIATION 13.9 (11.5-15.0); RED BLOOD CELL COUNT(AUTO) 2.75 MIL/uL (4.0-5.2); WHITE BLOOD COUNT (AUTO) 4.5 K/uL (4.3-11.0)
[2017-03-25 05:07] LABS: CALCIUM, SERUM 7.5 mg/dL (8.5-10.1); CREATININE 0.9 mg/dL (0.6-1.3); POTASSIUM 3.7 mmol/L (3.5-5.1)
[2017-03-25] MEDS: ALBUMIN 25% 25 GM in PREMIX 1 EA IV SCH (05:15)
[2017-03-25 05:24] LABS: PLATELET COUNT (AUTO) 48 /CMM (150-450)
[2017-03-25] MEDS: PIPERACILLIN /TAZOBACTAM 2.25 G in IV D5W 50 ML IV SCH ×2 (06:13→11:36)
[2017-03-25 06:25] LABS: BAND % (MANUAL) 39 % (0.0-5.0); EOSINOPHILS % (MANUAL) 5 % (0-4); LYMPHOCYTES % (MANUAL) 5 % (16-48); MONOCYTES % (MANUAL) 2 % (0-11.0); NEUTROPHILS % (MANUAL) 49 (42-76)
--- NOTE | 2017-03-25 06:30 | NUR ---
MOTOR ROUTE CARRIER - END OF SHIFT NOTES. DR. SJ MANRIQUE WAS PHONED SEVERAL TIMES RE: PT'S CRITICAL PLT. COUNT. IT IS #48 & WAS REPEATED (DRAWN IN BLUE TOP TUBE) AND NOW IT'S #41. DR. MANRIQUE AWARE. ORDERS REC'D. LOVENOX DC'D. SCD'S ORDERED FOR PT. ALSO, OCCULT BLOOD CAME BACK POSITIVE LAST NIGHT. NOTED. VANCO TROUSH IS #9. MED GIVEN. CVP RANGED FROM 5 TO 11 MMHG. PT. ADM. 2 COMP. BEDBATHS DUE TO FECAL INC. BS'S Q 4 HRS. LEVOPHED GTT. SHUT OFF AT 3 AM. PT'S SBP'S ARE MAINTAINING WELL. RT.KNEE LESION IS OPEN TO AIR. PT. HAS SCARRING ALL OVER HER BODY. COOLING MEASURES ALL NIGHT GIVEN. BILAT.SOFT WRIST RESTRAINTS NOTED. RIJ TLC HAS 3 PORTS-ALL PATENT TO FLUSH. CONTINUE POC.
--- NOTE | 2017-03-25 07:00 | NUR ---
ICU INITIAL NOTES RECEIVED PT IN BED, CONFUSED AT TIMES,NODS TO SIMPLE QUESTIONS,UNABLE TO FOLLOW COMMANDS, PT IS ON BIPAP 20/5 RATE 18 FIO2 40%, SATING 100%, NO S/S OF RESP.DISTRESS OR SOB NOTED AT THIS TIME, PT IS ON BEDSIDE MONITOR SHOWING ST@107 BPM, NO S/S OF CHEST PAIN OR DISCOMFORT AT THIS TIME, PT HAS F/C DRAINING YELLOW URINE TO GRAVITY, PT HAS MULTIPLE SKIN ISSUES, PT HAS BILATERAL WRIST RESTRAINTS, RELEASED AND SKIN CHECK COMPLETED, PT IS CURRENTLY NPO AT THIS TIME, PT HAS RIJ TLC, RUNNING 1/2 NS + 40 KCL@100ML/HR, C/D/I/PATENT, FLUSHING WELL, NO S/S OF INFECTION/ INFILTRATION NOTED AT THIS TIME, PT HAS CVP MONITOR SHOWING 12 MMHG, ALL SAFETY MEASURES IN PLACE AT ALL TIMES, CALL LIGHT WITHIN EASY REACH, WILL MONITOR PT CLOSELY FOR CHANGES
--- NOTE | 2017-03-25 08:00 | NUR ---
ICU NOTES DR. GREEN MADE ROUNDS, AWARE OF LAB AND TEST RESULTS, ALL NEW ORDERS ACK.
[2017-03-25] MEDS ORDERED: IV SET PRIMARY PUMP SET 1 EA INFUS.SET MC ONE (08:49)
[2017-03-25] MEDS ORDERED: Sodium Phosphate 15 MMOL in IV D5W 250 ML IV ONE (09:00)
[2017-03-25] MEDS: PANTOPRAZOLE 40 MG VIAL IV SCH (09:01)
[2017-03-25] MEDS: HYDROGEL DRESSING 90 GM TUBE TP SCH (09:01)
[2017-03-25] MEDS: Z GUARD REMEDY 2 OZ OINT TP PRN (09:02)
[2017-03-25 09:46] LABS: ABG BASE EXCESS -1.6 mmol/L; ABG OXYGEN SATURATION 96.5 % (92.0-98.5); ABG PCO2 28.3 mmHg (35.0-45.0); ABG PH 7.491 (7.350-7.450); AaDO2 152.7 mmHg; COHb 0.7 % (0.5-1.5); O2Hb 94.9 % (94.0-97.0); SITE, ABG Right Radial; VENT MODE, BG BIPAP 20/5
--- NOTE | 2017-03-25 09:49 | NUR ---
ICU NOTE RECEIVED ORDERS TO REMOVED BIPAP, BIPAP REMOVED, ORAL CARE PROVIDED, PT PLACED ON 3L NC, SATING 96%, PT REQUESTING TO EAT AND DRINK, WILL MONITOR PT CLOSELY
--- NOTE | 2017-03-25 09:50 | NUR ---
pt placed off bipap post abg results. RN and MD aware of changes.
[2017-03-25] MEDS ORDERED: Z GUARD REMEDY 2 OZ OINT TP PRN (13:30)
[2017-03-25] MEDS ORDERED: ONDANSETRON HCL/PF 4 MG/2 ML VIAL IVP PRN (13:30)
[2017-03-25 16:02] LABS: IRON, SERUM 20 ug/dl (50-175); TOTAL IRON BINDING CAPACITY 89 ug/dl (250-450)
--- NOTE | 2017-03-25 17:00 | NUR ---
ICU NOTES CALLED SPOKE TO MD REGARDING PT, MD AWARE FOR LABS AND + OB STOOL, NO EGD AT THIS TIME, WILL UPDATE MD IF ANY CHANGES
[2017-03-25] MEDS ORDERED: GUAIFENESIN/CODEINE 10 ML UDC ONE (22:14)
[2017-03-25] MEDS: GUAIFENESIN/CODEINE 10 ML UDC PO PRN (22:24)
[2017-03-26] VITALS (24 sets, daily range): BP systolic 93–156; BP diastolic 44–109
[2017-03-26] MEDS: VANCOMYCIN 0.75 GM in IV D5W 250 ML IV SCH ×2 (03:52→15:36)
[2017-03-26 04:27] LABS: BASOPHILS % (AUTO) 0.1 % (0.0-2.0); EOSINOPHILS # (AUTO) 0.2 /CMM (0.0-0.7); EOSINOPHILS % (AUTO) 4.1 % (0.0-6.0); HEMATOCRIT 24 % (33-45); HEMOGLOBIN 8.3 g/dL (11.5-14.8); LYMPHOCYTES % (AUTO) 22.8 % (20.0-44.0); MEAN CORPUSCULAR HEMOGLOBIN 29 PG (26.0-33.0); MEAN CORPUSCULAR HGB CONC 34 g/dl (31.0-36.0); MEAN CORPUSCULAR VOLUME 85 fL (82-100); MONOCYTES # (AUTO) 0.4 /CMM (0.1-1.30); MONOCYTES % (AUTO) 9.2 % (2.0-12.0); NEUTROPHILS # (AUTO) 2.8 /CMM (1.8-8.9); NEUTROPHILS % (AUTO) 63.8 % (43.0-81.0); PLATELET COUNT (AUTO) 58 /CMM (150-450); RDW COEFFICIENT OF VARIATION 13.8 (11.5-15.0); RED BLOOD CELL COUNT(AUTO) 2.86 MIL/uL (4.0-5.2); WHITE BLOOD COUNT (AUTO) 4.4 K/uL (4.3-11.0)
[2017-03-26 05:08] LABS: ALBUMIN 2.1 g/dL (3.4-5.0); BILIRUBIN,TOTAL 0.8 mg/dL (0.2-1.0); CALCIUM, SERUM 7.7 mg/dL (8.5-10.1); CREATININE 0.8 mg/dL (0.6-1.3); MAGNESIUM 1.8 mg/dL (1.8-2.4); PHOSPHORUS 2.3 mg/dL (2.5-4.9); POTASSIUM 3.3 mmol/L (3.5-5.1); TOTAL PROTEIN, SERUM 5.2 g/dL (6.4-8.2)
[2017-03-26 05:29] LABS: EOSINOPHILS % (MANUAL) 2 % (0-4); LYMPHOCYTES % (MANUAL) 35 % (16-48); MONOCYTES % (MANUAL) 7 % (0-11.0); NEUTROPHILS % (MANUAL) 56 (42-76)
[2017-03-26] MEDS: INSULIN REGULAR, HUMAN 100 UNIT/ML 3 ML VIAL SQ PRN ×3 (05:52→17:59)
[2017-03-26] MEDS: BLOOD SUGAR DIAGNOSTIC 1 EACH STRIP IN SCH ×3 (05:59→17:59)
--- NOTE | 2017-03-26 06:30 | NUR ---
CONSOLE MANAGER - REC'D PT. ALERT X 2, PT. KNOWS HER NAME & KNOWS THAT SHE IS IN THE HOSPITAL. PT. STARTING TO COUGH CONT. JHON BANDSAW OPERATOR NEON MOLDER. ORDERS REC'D. PT. REC'D A 5ML DOSE OF GUAFFESIN W/CODIENE. MED WORKED FOR A COUPLE HRS. A COMP. BEDBATH DONE DUE TO FECAL INC. ORAL,[place] & SKIN/WOUND CARE GIVEN. PT.REFUSED PCXR. THIS AM. RN EXPLAINED TO PT. THE IMPORTANCE OF AN X-RAY NOW, PT. INSISTS ON TALKING W/MD FIRST. PT'S PLATELETS INCREASED TO #58. AFEBRILE. VS'S. PT.IS NOW ON O2/2L/NC. PT.HAD A GOOD APPETITE ALL NIGHT. AVILES CATH. TO GRAVITY. CONT.POC.
[2017-03-26] MEDS: PANTOPRAZOLE 40 MG TABLET.DR PO SCH (07:41)
[2017-03-26] MEDS: GUAIFENESIN/CODEINE 10 ML UDC PO PRN ×3 (07:43→21:37)
--- NOTE | 2017-03-26 07:45 | NUR ---
ICU/RN - Notes Received pt in bed awake, alert and oriented x3. No acute distress. Respirations are even and unlabored. Denies pain or discomfort. On tele reading ST 103. IVF infusing well. Richter catheter intact draining urine to gravity. Pt complains of cough, administered Guaifenesin 5mg PO as ordered for PRN cough. Safety and fort measures in place. Will continue to monitor pt closely.
[2017-03-26] MEDS: HYDROGEL DRESSING 90 GM TUBE TP SCH (08:40)
[2017-03-26 10:46] LABS: ABG BASE EXCESS -4.8 mmol/L; ABG OXYGEN SATURATION 93.1 % (92.0-98.5); ABG PO2 73.7 mmHg (75.0-100.0); AaDO2 94.1 mmHg; COHb 1.1 % (0.5-1.5); MetHb 0.8 % (0.0-1.5); O2Hb 91.3 % (94.0-97.0); SITE, ABG Left Radial; VENT MODE, BG NASAL CANNULA
--- NOTE | 2017-03-26 12:00 | NUR ---
ICU/RN - Notes Cleared by Dr Ni for Telemetry status. Charge nurse informed.
[2017-03-26] MEDS ORDERED: SECONDARY IV SET 1 EA INFUS.SET MC ONE (15:29)
[2017-03-26] MEDS ORDERED: K PHOS NEUTRAL 250 MG TABLET PO ONE (16:00)
--- NOTE | 2017-03-26 16:00 | NUR ---
TAX DIRECTOR NOTES RECEIVED PATIENT FROM ICU, IN BED ALERT AND ORIENTED, NO COMPLAINT OF PAIN, ON 2LPM VIA NC WITH SPO2 98%, PLACED ON TELE MONITOR, RHYTHM SHOWS SINUS TACHY 103, AVILES CATHETER DRAINING, TURNED AND REPOSITIONED, TRIPLE LUMEN CATH ON RIGHT IJ PATENT AND INTACT, FLUSHES WELL, IVF INFUSING, ALL NEEDS ATTENDED, WILL CONTINUE TO MONITOR. Addendum: 03/26/17 at 1838 by BRANNON WALKER RN TIME CORRECTION: [id number]
--- NOTE | 2017-03-26 16:55 | NUR ---
ICU/RN - Transfer Pt transferred to Telemetry Rm 325-2 via ACLS protocol. Report called to CRISTA Zaragoza for continuity of care.
--- NOTE | 2017-03-26 18:38 | NUR ---
CENTRAL SERVICE SUPPLY DISTRIBUTOR NOTES PATIENT IN BED, BLOOD SUGAR 235, GIVEN 6 UNITS, TOLERATING DINNER, IN STABLE CONDITION, NEEDS ATTENDED, WILL ENDORSE TO PRODUCT DEMONSTRATOR FOR GAVIN.
--- NOTE | 2017-03-26 19:30 | NUR ---
TELE CONCRETE TILE MACHINE OPERATOR INITIAL NOTES RECEIVED REPORT FROM AM NURSE WHILE CHECKING THE PT AT THE SAME TIME. PT IS ALERT ORIENTED WITH IVF INFUSING AT THIS TIME ON HER RIGHT JUGULAR VEIN 1/2 NS WITH 20MEQ KCL AT 100ML/HR. DENIES ANY DISCOMFORT AT THIS TIME. SKIN WARM TO TOUCH, NOTICED SOME LESION ON HER RIGHT KNEE, HEALED WOUND ON LEFT KNEE . NO SIGNS OF ANY DISCOMFORT OR ANY ACUTE DISTRESS NOTED. ENCOURAGE HER TO USED THE CALL LIGHT IF SHE NEEDS SOME HELPED. AVILES TO GRAVITY DRAINING WELL. TELE ST PER MONITOR. KEPT HER WARM AND COMFORTABLE AT ALL TIMES. WILL CONTINUE TO MONITOR. PLACE CALL LIGHT AT REACH.
[2017-03-27] VITALS: BP 110/68
[2017-03-27] MEDS: BLOOD SUGAR DIAGNOSTIC 1 EACH STRIP IN SCH ×4 (00:24→18:01)
[2017-03-27] MEDS: INSULIN REGULAR, HUMAN 100 UNIT/ML 3 ML VIAL SQ PRN ×4 (00:26→18:03)
--- NOTE | 2017-03-27 00:46 | NUR ---
ENVIRONMENTAL HEALTH SANITARIAN/NOTES BLOOD SUGAR CHECKED 189, 3 UNITS OF INSULIN GIVEN EARLINE SQ ORDERED. PT STILL ON IVF, SNACKS ALSO SERVED.
[2017-03-27 04:00] VITALS: BP 100/70
[2017-03-27] MEDS: VANCOMYCIN 0.75 GM in IV D5W 250 ML IV SCH ×2 (04:13→17:13)
[2017-03-27] MEDS: GUAIFENESIN/CODEINE 10 ML UDC PO PRN (05:52)
[2017-03-27] MEDS: PANTOPRAZOLE 40 MG TABLET.DR PO SCH (05:52)
--- NOTE | 2017-03-27 07:30 | NUR ---
tele stock worker and deliverer closing notes pt awake and alert , morning care done as well as wound care treatment. blood sugar checked 245. 6 units of insulin given, no signs of hyper glycemia noted. all due meds given and all needs met. tele SR per campus monitor. stable ramsey the night and slept well. IVF still infusing on her right jugular vein, no redness noted , desouza cath draining well 2500 output noted. kept her warm and comfortable at all times. Endorse to am nurse for continuity of care.
--- NOTE | 2017-03-27 07:30 | NUR ---
TELE/RN OPENING NOTES PT. IS IN BED AWAKE, A&OX3. PT. ON TELE MONITOR READING SINUS TACHYCARDIA. NO SOB, BREATHING ON OXYGEN 2L/MIN WITH NASAL CANNULA. NO S/S OF ACUTE DISTRESS. PT. HAS AVILES CATHETER WITH CLEAR AND YELLOW URINE OUTPUT. IV FLUIDS RUNNING AT 100 ML/HR BY RIGHT JUGULAR VEIN TRIPLE LUMEN CATHETER. BED IS IN LOW POSITION, 2 SIDE RAILS UP, AND INSTRUCTED PT. TO USE CALL LIGHT FOR ASSISTANCE.
--- NOTE | 2017-03-27 08:22 | NUR ---
PATIENT STILL REFUSING CHEST XRAY.
--- NOTE | 2017-03-27 08:26 | NUR ---
CHARGE NOTE: DC TELEMETRY PER DR. ESCOBAR.
--- NOTE | 2017-03-27 09:17 | NUR ---
RN NOTES NOTIFIED MD PT. REFUSED MORNING LABS TWICE, VITAL SIGNS, AND CHEST X-RAY. MD ORDERED A PSYCHIATRIC EVALUATION.
[2017-03-27] MEDS ORDERED: SECONDARY IV SET 1 EA INFUS.SET MC ONE (09:56)
[2017-03-27] MEDS: HYDROGEL DRESSING 90 GM TUBE TP SCH (12:06)
--- NOTE | 2017-03-27 16:08 | NUR ---
RN NOTES PT. REFUSED HAVING VITAL SIGNS TAKEN AT 1600, AND REFUSED TO HAVE LABS DRAW BLOOD FOR VANCOMYCIN TROUGH LEVELS IN ORDER TO ADMINISTER IV ANTIBIOTICS.
--- NOTE | 2017-03-27 16:26 | NUR ---
RN NOTES PHARMACY CALLED TO CHECK ON VANCOMYCIN IV ADMINISTRATIONS. EXPLAINED TO PHARMACY THAT PT. REFUSES TO HAVE BLOOD DRAWN AND VANCOMYCIN TROUGH LEVELS DRAWN. OKAY PER PHARMACY TO ADMINISTER IV ANTIBIOTICS WITHOUT NEW TROUGH LEVEL.
--- NOTE | 2017-03-27 16:31 | NUR ---
RN NOTES CALLED TO FOLLOW UP IF PT. HAD PSYCHIATRIC EVALUATION TODAY WITH DR. MCMILLAN. COULD NOT FIND NOTED IN [facility]. CALLED [facility] TO CHECK IF MD HAD SEEN PT. PER TOUCH UP CARVER IS NOT THERE AT THIS TIME. FAXED PT.'S FACE SHEET TO [facility], AND NOTIFIED THAT PT. HAS ORDER FOR PSYCHIATRIC EVALUATION TODAY.
--- NOTE | 2017-03-27 19:06 | NUR ---
MS TOBIN NOTES PATIENT CONTINUED TO REFUSE WOUND CARE TODAY WITH MULTIPLE ATTEMPTS AND EDUCATION. PATIENT STATES REPERCUSSIONS TO NOT HAVING WOUND CARE COMPLETED Addendum: 03/27/17 at 1909 by WALI OLSON RN Amended: Links added.
--- NOTE | 2017-03-27 19:10 | NUR ---
RN CLOSING NOTES PT. IS IN BED AWAKE, A&OX3. NO SOB, BREATHING ON OXYGEN 2L/MIN WITH NASAL CANNULA. NO S/S OF ACUTE DISTRESS. PT. HAS AVILES CATHETER WITH CLEAR AND YELLOW 1200 ML URINE OUTPUT. IV FLUIDS RUNNING AT 100 ML/HR ON RIGHT INTRA JUGULAR VEIN TRIPLE LUMEN CATHETER. BED IS IN LOW POSITION, 2 SIDE RAILS UP, AND INSTRUCTED PT. TO USE CALL LIGHT FOR ASSISTANCE.
--- NOTE | 2017-03-27 19:30 | NUR ---
RN NOTES RECEIVED PT AWAKE, HOB ELEVATED, NO SOB, NOT IN DISTRESS, WITH O2 INHALATION AT 2LPM VIA NC AND TOLERATED WELL. PT ALERT AND ORIENTED X3, DENIES ANY PAIN AND DISCOMFORT AT THIS TIME. DENIES NAUSEA AND VOMITING. RIGHT IJ CENTRAL VENOUS CATH INTACT WITH ONGOING IV 1/2 NS WITH 20 MEQ KCL AT 100 ML/HR INFUSING WELL. AVILES CATH INTACT WITH CLEAR URINE OUTPUT NOTED. BOTH LOWER LEG ELEVATED ON PILLOWS. KEPT COMFORTABLE AND ATTENDED. WILL CONTINUE TO MONITOR PT.
--- NOTE | 2017-03-27 20:00 | NUR ---
RN NOTES PT REFUSED BP TO BE TAKEN, RISK AND BENEFITS EXPLAINED, PT STRONGLY REFUSED TO CHECK HER BP. WILL CONTINUE TO MONITOR PT.
[2017-03-28] MEDS: BLOOD SUGAR DIAGNOSTIC 1 EACH STRIP IN SCH ×3 (00:21→11:55)
[2017-03-28] MEDS: INSULIN REGULAR, HUMAN 100 UNIT/ML 3 ML VIAL SQ PRN ×4 (00:24→16:49)
--- NOTE | 2017-03-28 00:24 | NUR ---
RN NOTES BLOOD SUGAR CHECKED 270 MG/DL, 9 UNITS REGULAR INSULIN GIVEN SUBCU. WILL CONTINUE TO MONITOR PT.
--- NOTE | 2017-03-28 05:05 | NUR ---
RN NOTES PT REFUSED BLOOD DRAW FOR VANCO TROUGH AND SCHEDULED LAB FOR TODAY. RISK AND BENEFITS EXPLAINED PT STRONGLY REFUSED.
[2017-03-28] MEDS: VANCOMYCIN 0.75 GM in IV D5W 250 ML IV SCH ×2 (06:00→14:43)
--- NOTE | 2017-03-28 06:00 | NUR ---
RN NOTES VANCOMYCIN 750 MG IV PUT ON HOLD BECAUSE PT REFUSED BLOOD DRAW FOR VANCOMYCIN TROUGH.
--- NOTE | 2017-03-28 06:14 | NUR ---
RN NOTES BLOOD SUGAR CHECKED 134 MG/DL, 2 UNITS OF REGULAR INSULIN GIVEN SUBCU. WILL CONTINUE TO MONITOR PT.
[2017-03-28] MEDS: PANTOPRAZOLE 40 MG TABLET.DR PO SCH (07:30)
--- NOTE | 2017-03-28 07:30 | NUR ---
RN NOTES PT AWAKE, HOB ELEVATED, NO SOB, NOT IN DISTRESS, ON 2LPM O2 VIA NC AND TOLERATED WELL. BLOOD SUGAR MONITORED, NO SIGNS OF HYPO OR HYPERGLYCEMIA NOTED. NO COMPLAIN OF PAIN, NO EPISODE OF NAUSEA NAD VOMITING NOTED. PT IS NON COMPLIANT, REFUSING BLOOD DRAW FOR LABS TESTS AND REFUSING TO HAVE BLOOD PRESSURE CHECKED. VANCO DOSE AT 0600 PUT ON HOLD, CHARGE NURSE AWARE. ALL NEEDS ATTENDED. SKIN CARE AND WOUND CARE DONE. TURNED AND REPOSITION SCHEDULED. HEELS OFFLOADED. ENDORSED TO MORNING RN FOR CONTINUITY OF CARE.
[2017-03-28] MEDS: HYDROGEL DRESSING 90 GM TUBE TP SCH (07:41)
[2017-03-28] MEDS: GUAIFENESIN/CODEINE 10 ML UDC PO PRN (07:44)
--- NOTE | 2017-03-28 07:46 | NUR ---
RN OPENING NOTES PT. IS IN BED AWAKE, A&OX3. NO SOB, PT. IS BREATHING UNLABORED ON OXYGEN 2.5 L/MIN WITH NASAL CANNULA. NO S/S OF ACUTE DISTRESS, AND PT. DENIES PAIN. IV FLUIDS RUNNING AT 100 ML/HR ON RIGHT INTRA JUGULAR IV PICC TRIPLE LUMEN CATHETER LINE. AVILES CATHETER HAS CLEAR, YELLOW URINE WITH WHITE SEDIMENTS, 550 ML OUTPUT. PER SCALE PT. GAINED 2.2 LBS. BED IS IN LOW POSITION, 2 SIDE RAILS UP, AND INSTRUCTED PT. TO USE CALL LIGHT FOR ASSISTANCE. PER MOLDING TECHNICIAN PT. REFUSED TO HAVE BLOOD PRESSURE TAKEN BECAUSE IT IS TOO PAINFUL.
--- NOTE | 2017-03-28 07:57 | NUR ---
RN NOTES PT. WAS GIVEN ROBITUSSIN FOR COUGHING.
--- NOTE | 2017-03-28 10:06 | NUR ---
PT KEEPS REFUSING CHEST XRAY. CRISTA BECK KNOWS TO ORDER CHEST XRAY ONCE THE PT AGREE TO HAVE IT DONE. WILL CANCEL THE OLD XRAY FOR NOW.
[2017-03-28] MEDS ORDERED: QUETIAPINE FUMARATE 25 MG TABLET PO SCH (11:30)
[2017-03-28] MEDS ORDERED: QUET25TA PO (11:56)
--- NOTE | 2017-03-28 17:30 | NUR ---
RN NOTES CALLED [facility] AND GAVE REPORT TO EUFEMIA TOBIN FOR DISCHARGE.
--- NOTE | 2017-03-28 18:00 | NUR ---
RN NOTES TOTAL URINE OUTPUT WAS 2600 MLS. IV FLUIDS INOUT 1250 MLS. PT. HAD 2 BOWEL MOVEMENTS.
--- NOTE | 2017-03-28 18:00 | NUR ---
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 PT. SIGNED DISCHARGE PACKET, AND BELONGINGS LIST. PT.'S INTERNAL JUGULAR TRIPLE LUMEN IV CATHETER WAS REMOVED WITHOUT COMPLICATIONS AND NO BLEEDING. AVILES CATHETER WAS LEFT INTACT AND EMPTIED 1400 ML OR CLEAR, AND YELLOW URINE. PT. SACRAL DRESSING WAS CHANGED. PT. LEFT BY AMBULANCE TO [facility].
== END 2017-03-28 18:46 | DRG 720 ==
LOC: ER 22:34 → ICU 23:51 → MED 03-26 16:50 → TELE 03-26 19:52 → MED 03-27 09:00
PROVIDERS: ADMIT Nurse Practitioner Acute Care; ATTEND Nurse Practitioner Acute Care
PROC: B543ZZA Ultrasonography of Right Jugular Veins, Guidance (ICD-10-PCS; principal; 2017-03-22)
PROC: 05HM33Z Insertion of Infusion Device into Right Internal Jugular Vein, Percutaneous Approach (ICD-10-PCS; principal; 2017-03-22)
PROC: 5A09457 Assistance with Respiratory Ventilation, 24-96 Consecutive Hours, Continuous Positive Airway Pressure (ICD-10-PCS; principal; 2017-03-22)
DX: A41.9 Sepsis, unspecified organism (principal); N17.0 Acute kidney failure with tubular necrosis; R65.21 Severe sepsis with septic shock; G93.40 Encephalopathy, unspecified; J96.01 Acute respiratory failure with hypoxia; J96.02 Acute respiratory failure with hypercapnia; E87.0 Hyperosmolality and hypernatremia; E13.10 Other specified diabetes mellitus with ketoacidosis without coma; D69.6 Thrombocytopenia, unspecified; J18.9 Pneumonia, unspecified organism; E86.0 Dehydration; E87.1 Hypo-osmolality and hyponatremia; E86.1 Hypovolemia; E87.4 Mixed disorder of acid-base balance; E87.6 Hypokalemia; F02.80 Dementia in other diseases classified elsewhere, unspecified severity, without behavioral disturbance, psychotic disturbance, mood disturbance, and anxiety; G30.9 Alzheimer's disease, unspecified; Z79.4 Long term (current) use of insulin; J98.11 Atelectasis; Z66 Do not resuscitate; Z91.19 Patient's noncompliance with other medical treatment and regimen; Z83.3 Family history of diabetes mellitus; E87.5 Hyperkalemia; E83.42 Hypomagnesemia; C76.51 Malignant neoplasm of right lower limb; D64.9 Anemia, unspecified; F09 Unspecified mental disorder due to known physiological condition
CPT/HCPCS: 36415; 36600; 70450-TC; 71010-TC; 80048-TC; 80053-TC; 80061-TC; 80076-TC; 80202-TC; 80305; 81000-TC; 82010-TC; 82247-TC; 82248-TC; 82272-TC; 82803-TC; 82962-TC; 83540-TC; 83605-TC; 83735-TC; 84100-TC; 84443-TC; 84484-TC; 85025-TC; 85385-TC; 85730-TC; 86022; 87040-TC; 87081-TC; 87086-TC; 93307-TC; 94660; 97001-TC; A4216; A4606; A6248; A6403; A9563; C1751; C9113; J0610; J0696; J1650; J1815; J2060; J2543; J3370; J3475; J3480; J3490; J7030; J7040; J7050; J7060; P9047; Z7610

== ENCOUNTER 2017-04-01 13:52 | Inpatient (IN) | payer OTHER ==
[~2017-04-01] VITALS: Ht 160 cm; Wt 69.9 kg
[2017-04-01] VITALS (10 sets, daily range): BP systolic 88–122; BP diastolic 41–57
[~2017-04-01 13:52] MED LIST: ACET-868 PO; ASPI81TA2 PO; BISA-79 PR; BUPR1PAT3 TP; CRAN200C PO; DOCU-25 PO; INSU100V11 SQ; INSU3INS6 SUBCUT; MAGN400O6 PO; NA P133E RC; PROHEAL PO; QUET25TA PO
--- NOTE | 2017-04-01 13:53 | NUR ---
BIBRA FROM [facility] HIGH BLOOD SUGAR. PT REMAINS AAO3 WITH EPISODE OF CONFUSION. APPEARS IN NO APPARENT DISTRESS. RESPIRATION EVEN AND UNLABORED. SKIN IS WARM TO TOUCH AND NON DIAPHORETIC. AFEBRILE. VSS. NON HGEALING WOUND NOTED ON RIGHT KNEE.
[2017-04-01] MEDS ORDERED: IV NS 0.9% 1,000 ML BAG IV ONE ×2 (14:00→15:00)
[2017-04-01 14:35] LABS: BASOPHILS % (AUTO) 0.1 % (0.0-2.0); HEMATOCRIT 29 % (33-45); HEMOGLOBIN 9.3 g/dL (11.5-14.8); LYMPHOCYTES # (AUTO) 1.9 /CMM (0.8-4.8); LYMPHOCYTES % (AUTO) 11.5 % (20.0-44.0); MEAN CORPUSCULAR HEMOGLOBIN 28 PG (26.0-33.0); MEAN CORPUSCULAR HGB CONC 32 g/dl (31.0-36.0); MEAN CORPUSCULAR VOLUME 87 fL (82-100); MONOCYTES # (AUTO) 0.5 /CMM (0.1-1.30); MONOCYTES % (AUTO) 3.1 % (2.0-12.0); NEUTROPHILS # (AUTO) 13.8 /CMM (1.8-8.9); NEUTROPHILS % (AUTO) 85.3 % (43.0-81.0); PLATELET COUNT (AUTO) 160 /CMM (150-450); RDW COEFFICIENT OF VARIATION 14.8 (11.5-15.0); RED BLOOD CELL COUNT(AUTO) 3.34 MIL/uL (4.0-5.2); WHITE BLOOD COUNT (AUTO) 16.2 K/uL (4.3-11.0)
[2017-04-01 14:41] LABS: ALBUMIN 2.4 g/dL (3.4-5.0); BILIRUBIN,DIRECT 0.1 mg/dL (0.0-0.2); BILIRUBIN,TOTAL 0.4 mg/dL (0.2-1.0); CALCIUM, SERUM 9.2 mg/dL (8.5-10.1); CREATININE 1.9 mg/dL (0.6-1.3); POTASSIUM 4.7 mmol/L (3.5-5.1); TOTAL PROTEIN, SERUM 8.1 g/dL (6.4-8.2)
[2017-04-01] MEDS ORDERED: INSULIN REGULAR, HUMAN 100 UNIT in IV NS 0.9% 99 ML IV STA ×2 (14:47)
[2017-04-01] MEDS ORDERED: CEFTRIAXONE 1GM BAG (ER ONLY) 50 ML IV ONE (15:00)
--- NOTE | 2017-04-01 15:00 | NUR ---
DR SILVER ON THE PHONE WITH DR POSADAS.
--- NOTE | 2017-04-01 15:00 | NUR ---
PT REFUSED AVILES CHANGE AND EKG. AWARE
[2017-04-01] MEDS ORDERED: IV NS 0.9% 1,000 ML IV PRN (15:02)
[2017-04-01] MEDS: CEFTRIAXONE 1 G in IV D5W 50 ML IV SCH ×2 (15:05→15:48)
--- NOTE | 2017-04-01 15:05 | NUR ---
CALLED PHARMACY FOR INSULIN
[2017-04-01] MEDS ORDERED: HALOPERIDOL LACTATE INJ 5 MG/ML VIAL ONE (15:07)
[2017-04-01] MEDS ORDERED: INSULIN REGULAR, HUMAN 100 UNIT in IV NS 0.9% 99 ML IV PRN ×2 (15:30)
[2017-04-01] MEDS ORDERED: LORAZEPAM INJ 2 MG/ML VIAL IV PRN (15:30)
[2017-04-01] MEDS ORDERED: DEXTROSE 50%-WATER 50 ML DISP.SYRIN IV PRN ×2 (15:30→22:00)
[2017-04-01] MEDS ORDERED: ACETAMINOPHEN 325 MG TABLET PO PRN (15:30)
[2017-04-01] MEDS ORDERED: HALOPERIDOL LACTATE INJ 5 MG/ML VIAL IM ONE (15:30)
[2017-04-01] MEDS ORDERED: ONDANSETRON HCL/PF 4 MG/2 ML VIAL IVP PRN (15:30)
[2017-04-01] MEDS ORDERED: ACETAMINOPHEN 650 MG/SUPP.RECT RC PRN (15:30)
--- NOTE | 2017-04-01 15:37 | NUR ---
SJ MANRIQUE AT BEDSIDE FOR MIDLINE INSERTION
[2017-04-01] MEDS ORDERED: QUET25TA PO (15:54)
[2017-04-01] MEDS ORDERED: BISA10SU8 RC (15:54)
[2017-04-01] MEDS ORDERED: INSU100I26 SQ (15:54)
[2017-04-01] MEDS ORDERED: FEE PK DOSING 1 MIN EA MC ONE (15:55)
[2017-04-01] MEDS ORDERED: INSULIN REGULAR, HUMAN 100 UNIT/ML 3 ML VIAL SQ PRN (16:00)
[2017-04-01] MEDS ORDERED: VANCOMYCIN 1.25 GM in IV D5W 500 ML IV SCH (16:00)
--- NOTE | 2017-04-01 16:12 | NUR ---
PATIENT TRANSPORTED TO ICU VIA ACLS PROTOCOL. VSS. ENDORSED TO C[facility] KENT
[2017-04-01] MEDS: BLOOD SUGAR DIAGNOSTIC 1 EACH STRIP IN SCH ×7 (16:15→23:53)
[2017-04-01 16:39] LABS: MAGNESIUM 2.5 mg/dL (1.8-2.4); PHOSPHORUS 3.8 mg/dL (2.5-4.9)
[2017-04-01 16:48] LABS: APPEARANCE,URINE SL CLOUDY (CLEAR); BILIRUBIN,URINE 1+ (NEGATIVE); BLOOD, URINE 2+ Ery/uL (NEGATIVE); COLOR,URINE YELLOW (YELLOW); KETONES,URINE 2+ (NEGATIVE); LEUKOCYTE ESTERASE ,URINE 1+ (NEGATIVE); NITRITE, URINE NEGATIVE (NEGATIVE); PROTEIN,URINE TRACE mg/dl (NEGATIVE); UGLUCOSE 3+ mg/dL (NEGATIVE); UROBILINOGEN,URINE 0.2 EU/dL (0.2)
--- NOTE | 2017-04-01 16:53 | NUR ---
SYSTEMS INTEGRATION ADVISOR NOTE 1610: Admitted patient from ER, patient calm at this time, per ER nurse, with episode of refusal of care from ER and non compliance. Skin assessment done, noted with Sacrococcyx extended to right and left buttocks pressure ulcer, right knee scab, taken pictures and attached to chart. ADALID midline intact. On Insulin drip @ 5units/hr, will titrate as ordered, obtained order to follow BGx2/100 for insulin titration. 1630: Made Dr. Romero aware for the lactic acid 2.3, VSS, SBP 120's. no new order at this time. Able to send urine specimen, buit still refused to change Richter cath. 1645: Dr. Horton called and all questions were answered, per MD will see patient tomorrow. Patient remained calm at this time.
[2017-04-01 17:16] LABS: BACTERIA,URINE None seen /HPF (None Seen); RBC,URINE 0-2 /HPF (0-2); SQUAMOUS EPITHELIAL CELL,UR Rare /HPF (None Seen); YEAST,URINE Hyphal filaments /HPF (None Seen)
[2017-04-01] MEDS: VANCOMYCIN 0.75 GM in IV D5W 250 ML IV SCH (17:36)
[2017-04-01] MEDS: PIPERACILLIN /TAZOBACTAM 2.25 G in IV D5W 50 ML IV SCH ×2 (18:35→23:53)
[2017-04-01 19:34] LABS: CALCIUM, SERUM 8.1 mg/dL (8.5-10.1); CREATININE 1.5 mg/dL (0.6-1.3); POTASSIUM 3.1 mmol/L (3.5-5.1)
[2017-04-01 19:37] LABS: PHOSPHORUS 1.7 mg/dL (2.5-4.9)
--- NOTE | 2017-04-01 20:00 | NUR ---
DANCE INSTRUCTOR NOTE RECEIVED PT IN BED AWAKE. A/O X 2, NO SOB, NO DISTRESS OR DISCOMFORT NOTED. DENIES PAIN. IVF NS INFUSING AT 100 ML/HR, NO S/S OF INFILTRATION NOTED RAC AND INSULIN DRIP INFUSING AT 4.9 UNITS/HR ADALID MIDLINE. WILL CHECK BS Q1H ORDERED AND TITRATED INSULIN ACCORDINGLY. NO S/S OF HYPO OR HYPERGLYCEMIA NOTED. DECUB ON SCARUM AND RT AND LT BUTTOCK COVERED WITH MEPILEX. LT HEEL DTI COVERED WITH MEPILEX. SIDE RAILS UP X 3. CONTINUE TO MONITOR HER. Addendum: 04/01/17 at 2031 by BRIANNA PORTILLO RN ON TELE SR 90. F/C INTACT AND PATENT DRAINING YELLOWISH COLOR URINE.
[2017-04-01 20:20] LABS: TROPONIN I 0.065 ng/mL (0.00-0.056)
[2017-04-01] MEDS: IV D5/ 0.9% NACL 1,000 ML IV SCH (20:36)
[2017-04-01] MEDS: ENOXAPARIN SODIUM 30 MG/0.3 ML DISP.SYRIN SQ SCH (21:00)
--- NOTE | 2017-04-01 21:30 | NUR ---
Patient BMP resulted K+ level 3.1,ANION GAP [address]Simona Nelson with orders and carried out.
[2017-04-01] MEDS ORDERED: POTASSIUM CL. PREMIX PERIPHER. 0 ML ONE (21:59)
[2017-04-01] MEDS ORDERED: POTASSIUM PHOSPHATE MM 15 MMOL in IV D5W 250 ML IV SCH (22:00)
[2017-04-01] MEDS ORDERED: POTASSIUM CL. PREMIX PERIPHER. 50 ML IV SCH ×2 (22:00→23:00)
--- NOTE | 2017-04-01 22:23 | NUR ---
Verified order of Dr. Romero regarding k phos IV with .Per to give Potassium IV 20 meq IV total instead of 40 meq and give kphos as ordered by .
--- NOTE | 2017-04-01 22:43 | NUR ---
supervisor blasting Juani Pinto called hospital monitor pharmacist to prepare Kphos as ordered for this patient.Rosanna,pharmacist called and updated of patient status.Since the patient is no longer NPO then she can have Kphos tab 500 mg tab x 1 dose
[2017-04-01] MEDS ORDERED: K PHOS NEUTRAL 250 MG TABLET ONE (23:07)
--- NOTE | 2017-04-01 23:10 | NUR ---
Dr.Simona Gastelum. in agreement with pharmacist to give Kphos tab 500m po x 1 dose.Meds given.
[2017-04-01] MEDS ORDERED: K PHOS NEUTRAL 250 MG TABLET PO ONE (23:30)
[2017-04-01] MEDS: INSULIN REGULAR, HUMAN 100 UNIT/ML 3 ML VIAL SQ PRN (23:53)
[2017-04-02] VITALS (19 sets, daily range): BP systolic 96–150; BP diastolic 49–78
[2017-04-02 05:05] LABS: ALBUMIN 1.7 g/dL (3.4-5.0); BILIRUBIN,TOTAL 0.4 mg/dL (0.2-1.0); CREATININE 1.3 mg/dL (0.6-1.3); MAGNESIUM 1.9 mg/dL (1.8-2.4); PHOSPHORUS 2.8 mg/dL (2.5-4.9); POTASSIUM 3.4 mmol/L (3.5-5.1); TOTAL PROTEIN, SERUM 5.9 g/dL (6.4-8.2)
[2017-04-02 05:25] LABS: INR 1.04 (0.87-1.13); PROTHROMBIN TIME 11.2 SECS (9.5-12.7)
[2017-04-02] MEDS: PIPERACILLIN /TAZOBACTAM 2.25 G in IV D5W 50 ML IV SCH ×2 (05:35→11:32)
[2017-04-02] MEDS: BLOOD SUGAR DIAGNOSTIC 1 EACH STRIP IN SCH ×3 (06:10→20:33)
[2017-04-02] MEDS: INSULIN REGULAR, HUMAN 100 UNIT/ML 3 ML VIAL SQ PRN ×2 (06:11→17:15)
--- NOTE | 2017-04-02 06:51 | NUR ---
Patient resting in no distress.VS remains stable.SR/ST.Blood sugar monitored and coverage given per sliding scale.Tolerating po intake.Adequate urine output.IVF infusing well.AM care done.BM x 1.Turned and repositioned.Kept comfortable.
[2017-04-02] MEDS: IV D5/ 0.9% NACL 1,000 ML IV SCH (07:32)
[2017-04-02] MEDS ORDERED: IV D5/ 0.9% NACL 1,000 ML IV PRN (07:51)
[2017-04-02] MEDS ORDERED: DEXTROSE 50%-WATER 50 ML DISP.SYRIN IV PRN ×2 (08:00→14:00)
[2017-04-02] MEDS ORDERED: INSULIN REGULAR, HUMAN 100 UNIT/ML 3 ML VIAL SQ PRN ×2 (08:00→14:00)
[2017-04-02] MEDS ORDERED: *INSULIN REGULAR(HUMULIN R)HUM 100 UNIT/ML VIAL SQ PRN (08:00)
[2017-04-02] MEDS: Z GUARD REMEDY 2 OZ OINT TP SCH (08:36)
[2017-04-02] MEDS: HYDROGEL DRESSING 90 GM TUBE TP SCH (08:36)
--- NOTE | 2017-04-02 08:46 | NUR ---
DISH TECHNICIAN NOTE 0720: Received patient awake, A/Ox3. No c/o any discomfort at this time. On room air, tolerated well. ADALID midline intact, IVF infusing as ordered. Latest BG 250's. No S/S hypo/hyperglycemia noted at this time. Richter cath intact, noted with pale yellow with sediments urine drained to BSD. ST 100's on the monitor. 0800: Breakfast tray served but patient refused, encouraged to eat more. 0830: No any significant changes noted at this time. Will continue to monitor.
[2017-04-02] MEDS ORDERED: PANTOPRAZOLE 40 MG VIAL IV SCH ×2 (09:00)
[2017-04-02] MEDS: VANCOMYCIN 0.75 GM in IV D5W 250 ML IV SCH ×2 (10:12→22:08)
[2017-04-02] MEDS: POTASSIUM CL. PREMIX PERIPHER. 50 ML IV SCH ×2 (10:13→10:57)
[2017-04-02] MEDS ORDERED: BLOOD SUGAR DIAGNOSTIC 1 EACH STRIP VI SCH (12:00)
[2017-04-02] MEDS ORDERED: INSULIN DETEMIR 100 UNIT/ML CARTRIDGE SQ ONE (13:00)
--- NOTE | 2017-04-02 13:37 | NUR ---
WOUND CARE CONSULT: PT REFUSED SKIN ASSESSMENT. WILL SEE PT PT CONDITION PERMITS.
--- NOTE | 2017-04-02 13:49 | NUR ---
WOUND CARE CONSULT: PT ALLOWED WOUND/SKIN ASSESSMENT. PT PRESENTS WITH STAGE 2 SACRAL ULCER, LEFT HEEL DEEP TISSUE INJURY (INTACT) AND RT KNEE ESCHAR WITH SCANT PURULENT DRAINAGE AT PROXIMAL EDGE, ALL PRESENT ON ADMISSION. RECOMMEND SURGICAL CONSULT. PT ON FIRST STEP MATTRESS. ALL SKIN AND WOUND RECOMMENDATIONS DISCUSSED WITH NURSING STAFF. WILL SEE PRN. CAVAZOS IN AGREEMENT WITH PLAN OF CARE. Addendum: 04/02/17 at 1351 by JUN GREEN WNDNU Amended: Links added.
[2017-04-02] MEDS ORDERED: QUETIAPINE FUMARATE 25 MG TABLET PO PRN (14:30)
--- NOTE | 2017-04-02 14:30 | NUR ---
SPINNING FRAME CLEANER NOTE 1330: S/E by Dr. Romero, with order of Levemir 15units x1 now. S/E by wound nurse, continue skin treatments as ordered. Wound nurse contacted Dr. Caban for airways control specialist. Noted with right knee purulent discharge, wound nurse made Dr. Romero in the unit aware.
[2017-04-02] MEDS ORDERED: BLOOD SUGAR DIAGNOSTIC 1 EACH STRIP IN SCH (15:00)
[2017-04-02] MEDS: IV D5/ 0.9% NACL 1,000 ML IV PRN ×2 (15:18→19:59)
[2017-04-02] MEDS: CEFTRIAXONE 1 G in IV D5W 50 ML IV SCH (15:19)
[2017-04-02] MEDS: BOOST GLUCOSE CONTROL VANILLA 237 ML BOX PO SCH (17:13)
--- NOTE | 2017-04-02 18:06 | NUR ---
INSTRUCTOR INDUSTRIAL DESIGN NOTE 1620: S/E by Dr. Horton, with order of Seroquel PRN. 1800: Transferred patient to [facility] 114-2 via bed and using ACLS protocol. No significant changes during the transfer. Kept clean, warm and dry. Needs attended. Kept call light at reach. Remained compliant to care during the shift. But still noted with poor appetite. Boost given, and drunk half. Report given to Jolynn Mcgill RN for GAVIN.
--- NOTE | 2017-04-02 18:50 | NUR ---
RN AMY NOTES: REC'D PT FROM REGIONAL MARKETING DIRECTORCRISTA KENT VIA BED. PT IS A/O X3, NOT IN ANY FORM OF DISTRESS, DENIES ANY PAIN/ DISCOMFORT. ON TELEMONITOR, HAS PATENT & INTACT ADALID MIDLINE: D5NS X 75 CC/HR INFUSING WELL. FC DRAINING TO ADEQUATE YELLOW URINE OUTPUT. PT ORIENTED TO ROOM. PROVIDED COMFORT & SAFETY MEASURES. BED KEPT LOW & IN LOCKED POS. CALL LIGHT PLACED W/IN REACH. NEEDS ATTENDED AND ANTICIPATED. WILL ENDORSE TO PM RN FOR GAVIN. Addendum: 04/02/17 at 1905 by LUCIAN IRAHETA RN ADDENDUM: PER LAB, PT REFUSED 6PM LABS. PM RN NOTIFIED.
--- NOTE | 2017-04-02 20:00 | NUR ---
RN AMY - NOTES - SPT IS A/O X3, NOT IN ANY FORM OF DISTRESS, DENIES ANY PAIN/ DISCOMFORT. ON TELEMONITOR, HAS PATENT & INTACT ADALID MIDLINE: D5NS X 75 CC/HR INFUSING WELL. FC DRAINING TO ADEQUATE YELLOW URINE OUTPUT. PT ORIENTED TO ROOM. PROVIDED COMFORT & SAFETY MEASURES. BED KEPT LOW & IN LOCKED POS. CALL LIGHT PLACED W/IN REACH. NEEDS ATTENDED AND ANTICIPATED. WILL ENDORSE TO PM RN FOR GAVIN
[2017-04-02] MEDS: ENOXAPARIN SODIUM 30 MG/0.3 ML DISP.SYRIN SQ SCH (20:22)
--- NOTE | 2017-04-03 | NUR ---
PT REFUSED VITAL SIGNS AT 0000, SHE SAID SHE WANTS TO SLEEP
[2017-04-03] MEDS: BLOOD SUGAR DIAGNOSTIC 1 EACH STRIP IN SCH ×6 (01:56→21:27)
[2017-04-03] MEDS: INSULIN REGULAR, HUMAN 100 UNIT/ML 3 ML VIAL SQ PRN ×6 (01:59→21:13)
[2017-04-03 04:00] VITALS: BP 153/75
[2017-04-03] MEDS: IV D5/ 0.9% NACL 1,000 ML IV PRN ×2 (06:17→18:35)
[2017-04-03 06:46] LABS: BASOPHILS % (AUTO) 0.3 % (0.0-2.0); EOSINOPHILS # (AUTO) 0.1 /CMM (0.0-0.7); EOSINOPHILS % (AUTO) 0.9 % (0.0-6.0); HEMATOCRIT 25 % (33-45); HEMOGLOBIN 8.6 g/dL (11.5-14.8); LYMPHOCYTES # (AUTO) 1.4 /CMM (0.8-4.8); LYMPHOCYTES % (AUTO) 17.4 % (20.0-44.0); MEAN CORPUSCULAR HEMOGLOBIN 29 PG (26.0-33.0); MEAN CORPUSCULAR HGB CONC 34 g/dl (31.0-36.0); MEAN CORPUSCULAR VOLUME 84 fL (82-100); MONOCYTES # (AUTO) 0.6 /CMM (0.1-1.30); MONOCYTES % (AUTO) 7.5 % (2.0-12.0); NEUTROPHILS % (AUTO) 73.9 % (43.0-81.0); PLATELET COUNT (AUTO) 234 /CMM (150-450); RDW COEFFICIENT OF VARIATION 14.2 (11.5-15.0); RED BLOOD CELL COUNT(AUTO) 2.98 MIL/uL (4.0-5.2); WHITE BLOOD COUNT (AUTO) 8.1 K/uL (4.3-11.0)
[2017-04-03] MEDS: PANTOPRAZOLE 40 MG TABLET.DR PO SCH (07:30)
--- NOTE | 2017-04-03 07:45 | NUR ---
TD NOTES: RECEIVED PATIENT RESTING COMFORTABLY IN BED WITH NO SIGNS OF DISTRESS. ADALID MIDLINE INTACT WITH NO SIGNS OF INFECTION. CONTINUE IV FLUIDS ORDERED. FC TO GRAVITY WITH YELLOW COLOR. ON KCI MATTRESS. PATIENT ON ROOM AIR WITH NO SOB. CARE PLAN DISCUSSED WITH PATIENT. BED LOCKED, IN LOW POSITION WITH CALL LIGHT WITHIN REACH. ALL NEEDS MET AND ANTICIPATED. WILL CONTINUE TO MONITOR.
[2017-04-03 08:00] VITALS: BP 148/73
[2017-04-03] MEDS: BOOST GLUCOSE CONTROL VANILLA 237 ML BOX PO SCH ×2 (08:48→17:00)
[2017-04-03] MEDS: HYDROGEL DRESSING 90 GM TUBE TP SCH (08:49)
[2017-04-03] MEDS: Z GUARD REMEDY 2 OZ OINT TP SCH (08:49)
[2017-04-03 09:08] LABS: CALCIUM, SERUM 7.6 mg/dL (8.5-10.1); CREATININE 0.8 mg/dL (0.6-1.3); MAGNESIUM 1.4 mg/dL (1.8-2.4); PHOSPHORUS 2.5 mg/dL (2.5-4.9)
[2017-04-03 09:11] LABS: POTASSIUM 2.8 mmol/L (3.5-5.1)
[2017-04-03] MEDS: VANCOMYCIN 0.75 GM in IV D5W 250 ML IV SCH (10:58)
[2017-04-03] MEDS: POTASSIUM CHLORIDE 20 MEQ TAB.PRT.SR PO SCH ×3 (11:43→14:14)
[2017-04-03 12:00] VITALS: BP 147/77
--- NOTE | 2017-04-03 12:00 | NUR ---
TD RN NOTE: PATIENT IS COMPLIANT WITH CARE. NO S/S OF HYPERGLYCEMIC OR HYPERGLYCEMIC REACTION. WILL CONTINUE TO MONITOR.
[2017-04-03] MEDS: CEFTRIAXONE 1 G in IV D5W 50 ML IV SCH (15:43)
[2017-04-03 15:58] VITALS: BP 148/70
[2017-04-03 16:00] VITALS: BP 148/70
--- NOTE | 2017-04-03 16:00 | NUR ---
TD RN NOTE: DR. POSADAS SEEN PATIENT AT BEDSIDE AND AWARE OF ACCUCHECK RESULTS. PATIENT NOT IN ANY DISTRESS. ALL NEEDS MET AND ANTICIPATED. WILL CONTINUE TO MONITOR.
--- NOTE | 2017-04-03 18:17 | NUR ---
TD RN NOTE: PATIENT HAS NO COMPLAINTS AT THIS TIME. UNDERSTANDS CARE PLAN. ADALID MIDLINE DRESSING CHANGED. ALL NEEDS ATTENDED. WILL CONTINUE TO MONITOR CLOSELY.
[2017-04-03 20:00] VITALS: BP 111/66
--- NOTE | 2017-04-03 20:00 | NUR ---
AMY RN NOTES RECEIVED PTS ON BED AWAKE AND RESPONSIVE ,ON TELE SR -94 ON THE MONITOR, NOM SOB NO DISTRESS NOTED NO COMPLAIN OF PAIN AT THIS TIME, PTS ON ROOM AIR SATING 96%.ALL DUE MEDS GIVEN ORDERED . ALL NEEDS ATTENDED TOO, CALL LIGHT WITHIN REACH , V/S STABLE AFEBRILE . PTS NOTED NON COMPLIANT TO MEDS , WITH MIDLINE ON ADALID INTACT AND PATENT, WITH D5 NS RUNNING AT 75CC/HR WELL TOLERATED. WILL CONTINUE TO MONITOR PTS.
[2017-04-03] MEDS: ENOXAPARIN SODIUM 30 MG/0.3 ML DISP.SYRIN SQ SCH (21:00)
--- NOTE | 2017-04-03 21:00 | NUR ---
AMY RN NOTES LOVENOX WAS NOT GIVEN SECONDARY TO PTS REFUSAL EDUCATION RISK AND BENEFITS EXPLAINED , STILL PTS REFUSED MEDS.
--- NOTE | 2017-04-03 21:05 | NUR ---
AMY RN NOTES BLOOD SUGAR FOR 9PM IS 271MG/DL 15 UNITS OF LEVEMIR AND 6 UNITS OF REGULAR INSULIN GIVEN ORDERED.WILL CHECK BS AGAIN AT 1AM PTS ON PO DIET.
[2017-04-03] MEDS ORDERED: INSULIN DETEMIR 100 UNIT/ML CARTRIDGE SQ SCH (22:00)
[2017-04-04] VITALS: BP 148/75
[2017-04-04] MEDS: BLOOD SUGAR DIAGNOSTIC 1 EACH STRIP IN SCH ×5 (00:41→17:20)
[2017-04-04] MEDS: INSULIN REGULAR, HUMAN 100 UNIT/ML 3 ML VIAL SQ PRN ×4 (00:42→17:37)
--- NOTE | 2017-04-04 00:46 | NUR ---
AMY RN NOTES BLOOD SUGAR FOR 1AM IS 221 MG /DL -4 UNITS OF REGULAR INSULIN GIVEN PER SLIDING SCALE ,PTS ON PO DIET , WILL CHECK BLOOD SUGAR AGAIN AT 5AM
[2017-04-04 04:00] VITALS: BP 152/86
--- NOTE | 2017-04-04 04:57 | NUR ---
AMY RN NOTES BLOOD SUGAR FOR 5AM IS 92MG/DL=NO COVERAGE GIVEN PER SLIDING SCALE.
[2017-04-04 06:21] LABS: BASOPHILS % (AUTO) 0.4 % (0.0-2.0); EOSINOPHILS # (AUTO) 0.1 /CMM (0.0-0.7); EOSINOPHILS % (AUTO) 1.8 % (0.0-6.0); HEMATOCRIT 25 % (33-45); HEMOGLOBIN 8.4 g/dL (11.5-14.8); LYMPHOCYTES # (AUTO) 1.8 /CMM (0.8-4.8); LYMPHOCYTES % (AUTO) 26.2 % (20.0-44.0); MEAN CORPUSCULAR HEMOGLOBIN 29 PG (26.0-33.0); MEAN CORPUSCULAR HGB CONC 34 g/dl (31.0-36.0); MEAN CORPUSCULAR VOLUME 84 fL (82-100); MONOCYTES # (AUTO) 0.7 /CMM (0.1-1.30); MONOCYTES % (AUTO) 10.4 % (2.0-12.0); NEUTROPHILS # (AUTO) 4.1 /CMM (1.8-8.9); NEUTROPHILS % (AUTO) 61.2 % (43.0-81.0); PLATELET COUNT (AUTO) 225 /CMM (150-450); RDW COEFFICIENT OF VARIATION 13.8 (11.5-15.0); RED BLOOD CELL COUNT(AUTO) 2.95 MIL/uL (4.0-5.2); WHITE BLOOD COUNT (AUTO) 6.8 K/uL (4.3-11.0)
--- NOTE | 2017-04-04 06:31 | NUR ---
AMY RN NOTES PTS ON BED AWAKE ALERT AND RESPONSIVE , REMAINS ON SR , V/S STABLE AFEBRILE, NO SIGNIFICANT CHANGE NOTED AT THIS TIME.WILL ENDORSE PTS TO RN DAY SHIFT FOR CONTINUITY OF CARE.
[2017-04-04 06:45] LABS: CALCIUM, SERUM 7.5 mg/dL (8.5-10.1); CREATININE 0.7 mg/dL (0.6-1.3); PHOSPHORUS 2.7 mg/dL (2.5-4.9)
--- NOTE | 2017-04-04 07:30 | NUR ---
RN NOTES RECEIVED PT RESTING IN BED, AWAKE ALERT ORIENTEDX3 ABLE TO COMMUNICATE NEEDS. ON RA TOLERATING WELL NO SOB/ RESP DISTRESS NOTED. SR ON TELE MONITOR HR 86 AT THIS TIME, DENIES ANY PAIN/DISCOMFORT. REFUSED AM CARE AT THIS TIME. PT NOTED WITH ADALID MIDLINE FLUSHED WITH NS PATENT. KEPT COMFORTABLE, SAFETY MAINTAINED, NEEDS ATTENDED. CALL LIGHT WITHIN REACH WILL CONT TO MONITOR
[2017-04-04 08:00] VITALS: BP 148/80
[2017-04-04] MEDS: PANTOPRAZOLE 40 MG TABLET.DR PO SCH (08:33)
[2017-04-04] MEDS: HYDROGEL DRESSING 90 GM TUBE TP SCH (08:34)
[2017-04-04] MEDS: Z GUARD REMEDY 2 OZ OINT TP SCH (08:34)
[2017-04-04] MEDS: BOOST GLUCOSE CONTROL VANILLA 237 ML BOX PO SCH ×2 (08:36→17:22)
[2017-04-04 09:03] LABS: MAGNESIUM 1.2 mg/dL (1.8-2.4); POTASSIUM 2.8 mmol/L (3.5-5.1)
--- NOTE | 2017-04-04 10:00 | NUR ---
RN NOTES CALLED [facility] TO REACH DR FORMAN REPORTING MAG 1.2 AND POTASSIUM OF 2.8, LEFT A MESSAGE AWAITING FOR CALL BACK
[2017-04-04] MEDS: IV D5/ 0.9% NACL 1,000 ML IV PRN (11:45)
[2017-04-04 12:00] VITALS: BP 154/83
[2017-04-04] MEDS ORDERED: POTASSIUM CHLORIDE 20 MEQ TAB.PRT.SR PO ONE (13:30)
[2017-04-04] MEDS: POTASSIUM CL. PREMIX PERIPHER. 50 ML IV SCH ×4 (14:04→17:24)
[2017-04-04] MEDS: Magnesium 1GM/D5W 100ML PREMIX 100 ML IV SCH ×2 (14:04→15:06)
[2017-04-04 16:00] VITALS: BP 137/89
[2017-04-04] MEDS: CEFTRIAXONE 1 G in IV D5W 50 ML IV SCH (16:31)
--- NOTE | 2017-04-04 18:59 | NUR ---
RN NOTES CALLED [facility], REPORT GIVEN TO PRADEEP TOBIN. STILL AWAITING FOR AMBULANCE TOWER SUPERVISOR
--- NOTE | 2017-04-04 19:15 | NUR ---
RN NOTES PT DISCHARGED FROM UNIT IN STABLE CONDITION. TRANSPORTED TO [facility] VIA AMBULANCE ACCOMPANIED BY EMTX2. ALL DISCHARGE INSTRUCTIONS GIVEN, EXITCARE PROVIDED. ALL BELONGINGS RETURNED. PT SIGNED ALL PAPERWORK. FC REMOVED, ADALID MIDLINE REMOVED, PRESSURE APPLIED COVERED WITH CLEAN DRESSING. ID BAND REMOVED.
== END 2017-04-04 20:31 | DRG 420 ==
LOC: ER 13:54 → ICU 15:14 → TELE-TD 04-02 17:53 → TELE1 04-04 10:38
PROVIDERS: ADMIT Internal Medicine; ATTEND Internal Medicine
PROC: 05H533Z Insertion of Infusion Device into Right Subclavian Vein, Percutaneous Approach (ICD-10-PCS; principal; 2017-04-03)
DX: E13.10 Other specified diabetes mellitus with ketoacidosis without coma (principal); N17.0 Acute kidney failure with tubular necrosis; I21.4 Non-ST elevation (NSTEMI) myocardial infarction; G93.41 Metabolic encephalopathy; Z66 Do not resuscitate; E86.0 Dehydration; E03.9 Hypothyroidism, unspecified; E83.42 Hypomagnesemia; E87.6 Hypokalemia; G30.9 Alzheimer's disease, unspecified; I25.10 Atherosclerotic heart disease of native coronary artery without angina pectoris; F02.80 Dementia in other diseases classified elsewhere, unspecified severity, without behavioral disturbance, psychotic disturbance, mood disturbance, and anxiety; F09 Unspecified mental disorder due to known physiological condition; G11.9 Hereditary ataxia, unspecified; K59.00 Constipation, unspecified; Z79.4 Long term (current) use of insulin; Z79.82 Long term (current) use of aspirin; Z91.19 Patient's noncompliance with other medical treatment and regimen; Z79.899 Other long term (current) drug therapy; D72.829 Elevated white blood cell count, unspecified; M19.90 Unspecified osteoarthritis, unspecified site; M22.8X1 Other disorders of patella, right knee
CPT/HCPCS: 36415; 36569; 71010-TC; 80048-TC; 80053-TC; 80076-TC; 80202-TC; 81000-TC; 82962-TC; 83605-TC; 83735-TC; 84100-TC; 84484-TC; 85025-TC; 85610-TC; 87040-TC; 87070-TC; 87081-TC; 87086-TC; 92611-TC; A4216; A4606; A6248; J0696; J1630; J1650; J1815; J2543; J3370; J3475; J3480; J3490; J7030; J7040; J7042; J7060; Z7610